=== PATIENT | female | born 2000 | race Caucasian/White ===

== ENCOUNTER 2022-03-30 05:44 | Emergency (ER) | payer OTHER ==
[2022-03-30 06:01] VITALS: BP 135/92; PULSE 110; RESP 16; TEMP 98.1
[2022-03-30] MEDS ORDERED: LORazepam 1 MG TAB PO STA (06:14)
[2022-03-30] MEDS ORDERED: LIDOCAINE/EPINEPHR/TETRACAINE 5 ML BOTTLE TOPICAL ONE ×2 (06:14→07:14)
[2022-03-30] MEDS ORDERED: HYDROcodone/APAP 5-325MG 1 EACH TAB PO STA ×2 (06:14→07:14)
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
[2022-03-30] MEDS ORDERED: LIDOCAINE 1% INJ 10MG/ML (5 ML VIAL-PF) SQ ONE (06:54)
[2022-03-30] MEDS: DIPH,PERTUS(ACELL)TETVAC-LF 0.5 ML VIAL IM ONE ×2 (07:01→07:07)
--- NOTE | 2022-03-30 08:39 | XR ---
EXAMINATION TYPE: XR hand complete RT DATE OF EXAM: 03/30/2022 CLINICAL HISTORY: Pain after laceration injury TECHNIQUE: Frontal, lateral and oblique images of the right hand are obtained. COMPARISON: None. FINDINGS: Evaluation slightly suboptimal due to incomplete extension of the right thumb. There is no acute fracture/dislocation evident in the right hand. The joint spaces in the right hand appear with in normal limits. Mild diffuse soft tissue swelling over the right thumb without radiodense foreign b jamshid. IMPRESSION: As above.
== END 2022-03-30 09:15 | disposition home or self-care (01) ==
LOC: EC 05:44
DX: S61.011A Laceration without foreign body of right thumb without damage to nail, initial encounter (principal); F17.290 Nicotine dependence, other tobacco product, uncomplicated; W25.XXXA Contact with sharp glass, initial encounter
CPT/HCPCS: 73130; 99283; 12002; J2001; 90715

== ENCOUNTER 2022-12-12 15:34 | Emergency (ER) | payer OTHER ==
[2022-12-12] MEDS ORDERED: KETOROLAC 15 MG/ML 1 ML VIAL IM STA (16:26)
[2022-12-12] MEDS ORDERED: ORPHENADRINE 30 MG/ML 2 ML VIAL IM STA (16:26)
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
[2022-12-12 17:53] VITALS: BP 122/78; PULSE 60; RESP 20; TEMP 98.2
== END 2022-12-12 17:52 | disposition home or self-care (01) ==
LOC: EC 15:34
DX: Z04.1 Encounter for examination and observation following transport accident (principal); F17.290 Nicotine dependence, other tobacco product, uncomplicated; V49.50XA Passenger injured in collision with unspecified motor vehicles in traffic accident, initial encounter
CPT/HCPCS: 99284; 96372 ×2; J2360; J1885

== ENCOUNTER 2023-05-25 08:25 | Inpatient (IN) | payer OTHER ==
[2023-05-25] MEDS ORDERED: SODIUM CHLORIDE 0.9% 1,000 ML IV ONE ×2 (08:43→12:53)
[2023-05-25] MEDS ORDERED: SODIUM CHLORIDE 0.9% 500 ML 500 ML IV ONE (08:43)
[2023-05-25] MEDS ORDERED: ONDANSETRON 4 MG/2 ML VIAL IVP STA (08:45)
--- NOTE | 2023-05-25 08:48 | ED ---
General Adult HPI - General Chief complaint: Abdominal Pain Stated complaint: Vomiting Time Seen by Provider: 05/25/23 08:35 Source: patient, RN notes reviewed, old records reviewed Mode of arrival: ambulatory Limitations: no limitations - History of Present Illness Initial comments: This is a 23-year-old female who presents emergency Department stating she's about 4 weeks . Patient states last night after she ate some feeling ill and vomited on. Patient states she also has quite a bit diffuse abdominal pain. Patient states today she can anytime she tried to stand up she would almost passed out. This happened multiple times. Patient denies any fever chills. Patient denies any back pain. Patient denies any dysuria hematuria urinary frequency. Patient denies any chest pain difficulty breathing. - Related Data Home Medications Medication Instructions Recorded Confirmed No Known Home Medications 05/25/23 05/25/23 Allergies Allergy/AdvReac Type Severity Reaction Status Date / Time No Known Allergies Allergy Verified 05/25/23 09:17 Review of Systems ROS Statement: Those systems with pertinent positive or pertinent negative responses have been documented in the HPI. ROS Other: All systems not noted in ROS Statement are negative. Past Medical History Past Medical History: No Reported History History of Any Multi-Drug Resistant Organisms: None Reported Past Surgical History: Breast Surgery Past Psychological History: No Psychological Hx Reported Smoking Status: Vaper Past Alcohol Use History: Occasional Past Drug Use History: None Reported General Exam - General Exam Comments Initial Comments: GENERAL: Patient is well-developed and well-nourished. Patient is nontoxic and well- hydrated and is in moderate distress. ENT: Neck is soft and supple. No significant lymphadenopathy is noted. Oropharynx is clear. Moist mucous membranes. Neck has full range of motion without eliciting any pain. EYES: The sclera were anicteric and conjunctiva were pink and moist. Extraocular movements were intact and pupils were equal round and reactive to light. Eyelids were unremarkable. PULMONARY: Unlabored respirations. Good breath sounds bilaterally. No audible rales rhonchi or wheezing was noted. CARDIOVASCULAR: Patient is tachycardic at 140 beats minute ABDOMEN: Abdomen is diffusely tender and she has rebound tenderness SKIN: Skin is clear with no lesions or rashes and otherwise unremarkable. NEUROLOGIC: Patient is alert and oriented x3. Cranial nerves II through XII are grossly intact. Motor and sensory are also intact. Normal speech, volume and content. Symmetrical smile. MUSCULOSKELETAL: Normal extremities with adequate strength and full range of motion. No lower extremity swelling or edema. No calf tenderness. LYMPHATICS: No significant lymphadenopathy is noted PSYCHIATRIC: Normal psychiatric evaluation. Limitations: no limitations Course Vital Signs 05/25/23 05/25/23 08:31 09:15 Temperature 98.5 F Pulse Rate 144 H 114 H Respiratory 18 18 Rate Blood Pressure 62/53 94/72 O2 Sat by Pulse 98 97 Oximetry Medical Decision Making - Medical Decision Making EKG was interpreted by myself shows a sinus tachycardia at 114 bpm MO interval i s 118 QRS is 70 QT interval 342 QTC 410. Patient's EKG shows no ST segment elevation or depression. Was pt. sent in by a medical professional or institution (, PA, HORSE RACE TIMER, urgent ca re, hospital, or halfway...) When possible be specific @ -[No] Did you speak to anyone other than the patient for history (EMS, parent, family, police, friend...)? What history was obtained from this source @ -[No] Did you review nursing and triage notes (agree or disagree)? Why? @ -[I reviewed and agree with nursing and triage notes] Were old charts reviewed (outside hosp., previous admission, EMS record, old EKG, old radiological studies, urgent care reports/EKG's, halfway records)? Report findings @ -[No old charts were reviewed] Differential Diagnosis (chest pain, altered mental status, abdominal pain women, abdominal pain men, vaginal bleeding, weakness, fever, dyspnea, syncope, headache, dizziness, GI bleed, back pain, seizure, CVA, palpatations, mental health, musculoskeletal)? @ -Differential Abdominal Pain Women: Appendicitis, Cholecystitis, diverticulosis, ischemic bowel, pancreatitis, hepa titis, UTI, gastroenteritis, AAA, incarcerated hernia, bowel obstruction, constipation, inflammatory bowel, hepatitis, peptic ulcer disease, splenic infarction, perforated viscus, vulvitis, ovarian torsion, PID, kidney stone, placenta abruption, this is not meant to be an all-inclusive list EKG interpreted by me (3pts min.). @ -[As above] X-rays interpreted by me (1pt min.). @ -[None done] CT interpreted by me (1pt min.). @ -[None done] U/S interpreted by me (1pt. min.). @ -Ultrasound showed an ectopic in the right ovary and large amount of blood in the pelvis abdomen What testing was considered but not performed or refused? (CT, X-rays, U/S, labs)? Why? @ -[None] What meds were considered but not given or refused? Why? @ -[None] Did you discuss the management of the patient with other professionals (professionals i.e. Dr., PA, HORSE RACE TIMER, lab, RT, psych nurse, social insurance adviser, newsstand vendor, teacher, seal delivery vehicle officer, caseworker intake)? Give summary @ -I spoke with Dr. Mendez and he came in to see the patient Was smoking cessation discussed for >3mins.? @ -[No] Was critical care preformed (if so, how long)? @ -Minutes Were there social determinants of health that impacted care today? How? (Homelessness, low income, unemployed, alcoholism, drug addiction, transportation, low edu. Level, literacy, decrease access to med. care, long-term, rehab)? @ -[No] Was there de-escalation of care discussed even if they declined (Discuss DNR or withdrawal of care, Hospice)? DNR status @ -[No] What co-morbidities impacted this encounter? (DM, HTN, Smoking, COPD, CAD, C ancer, CVA, ARF, Chemo, Hep., AIDS, mental health diagnosis, sleep apnea, morbid obesity)? @ -[None] Was patient admitted / discharged? Hospital course, mention meds given and route, prescriptions, significant lab abnormalities, going to OR and other pertinent info. @ -On initial examination of the patient I felt the patient had an acute ab domen I admitted the ordered a type and screen for blood and called Dr. Mendez and Dr. Mendez stated he would be in within 10 minutes. I ordered an ultrasound which eventually showed no ectopic with quite a bit of blood in the abdomen. Dr. Mendez arranged for the patient to go to the OR to have surgery Undiagnosed new problem with uncertain prognosis? @ -[No] Drug Therapy requiring intensive monitoring for toxicity (Heparin, Nitro, Insulin, Cardizem)? @ -[No] Were any procedures done? @ -[No] Diagnosis/symptom? @ -Ectopic Acute, or Chronic, or Acute on Chronic? @ -Acute Uncomplicated (without systemic symptoms) or Complicated (systemic symptoms)? @ -Complicated Side effects of treatment? @ -[No] Exacerbation, Progression, or Severe Exacerbation? @ -[No] Poses a threat to life or bodily function? How? (Chest pain, [place], [place], pneumonia, PE, COPD, DKA, ARF, appy, cholecystitis, CVA, Diverticulitis, Homicidal, Suicidal, threat to staff... and all critical care pts) @ -Yes patient could continue bleeding become hypotensive and - Lab Data Result diagrams: 05/25/23 09:05 05/25/23 09:05 Lab Results 05/25/23 05/25/23 05/25/23 Range/Units 09:05 09:05 09:15 WBC 18.4 H (3.8-10.6) k/uL RBC 3.43 L (3.80-5.40) m/uL Hgb 10.4 L (11.4-16.0) gm/dL Hct 30.8 L (34.0-46.0) % MCV 89.7 (80.0-100.0) fL MCH 30.2 (25.0-35.0) pg MCHC 33.7 (31.0-37.0) g/dL RDW 12.6 (11.5-15.5) % Plt Count 388 (150-450) k/uL MPV 8.1 Neutrophils % 93 % Lymphocytes % 4 % Monocytes % 2 % Eosinophils % 0 % Basophils % 0 % Neutrophils # 17.1 H (1.3-7.7) k/uL Lymphocytes # 0.8 L (1.0-4.8) k/uL Monocytes # 0.4 (0-1.0) k/uL Eosinophils # 0.1 (0-0.7) k/uL Basophils # 0.0 (0-0.2) k/uL Sodium 135 L (137-145) mmol/L Potassium 5.0 (3.5-5.1) mmol/L Chloride 99 (98-107) mmol/L Carbon Dioxide 15 L (22-30) mmol/L Anion Gap 21 mmol/L BUN 16 (7-17) mg/dL Creatinine 1.42 H (0.52-1.04) mg/dL Est GFR (CKD-EPI)AfAm 60 (>60 ml/min/1.73 sqM) Est GFR (CKD-EPI)NonAf 52 (>60 ml/min/1.73 sqM) Glucose 251 H (74-99) mg/dL Calcium 8.8 (8.4-10.2) mg/dL Total Bilirubin 1.2 (0.2-1.3) mg/dL AST 34 (14-36) U/L ALT 38 H (4-34) U/L Alkaline Phosphatase 37 L (38-126) U/L Total Protein 7.0 (6.3-8.2) g/dL Albumin 4.3 (3.5-5.0) g/dL HCG, Quant 4429.1 mIU/mL Blood Type Recheck No Previous Record Bld Type Recheck Status CABO Indicated Spec Expiration Date 05/28/20234 Critical Care Time Critical Care Time: Yes Total Critical Care Time: 35 Disposition Clinical Impression: Ruptured ectopic Disposition: ADMITTED IP TO THIS [facility] Referrals: None,Stated [Primary Care Provider] - 1-2 days Time of Disposition: 09:57
[2023-05-25 09:14] LABS: Basophils % (A) 0 %; Eosinophils # (A) 0.1 k/uL (0-0.7); Eosinophils % (A) 0 %; HCT 30.8 % (34.0-46.0); HGB 10.4 gm/dL (11.4-16.0); Lymphocytes # (A) 0.8 k/uL (1.0-4.8); Lymphocytes % (A) 4 %; MCH 30.2 pg (25.0-35.0); MCHC 33.7 g/dL (31.0-37.0); MCV 89.7 fL (80.0-100.0); Mean Platelet Volume 8.1; Monocytes # (A) 0.4 k/uL (0-1.0); Monocytes % (A) 2 %; Neutrophils # (A) 17.1 k/uL (1.3-7.7); Neutrophils % (A) 93 %; Platelet Count 388 k/uL (150-450); RBC 3.43 m/uL (3.80-5.40); RDW 12.6 % (11.5-15.5); WBC 18.4 k/uL (3.8-10.6)
[2023-05-25 09:22] LABS: African American GFR (CKD) 60 (>60 ml/min/1.73 sqM); Albumin 4.3 g/dL (3.5-5.0); Alkaline Phosphatase 37 U/L (38-126); Anion Gap 21 mmol/L; Blood Urea Nitrogen 16 mg/dL (7-17); Calcium 8.8 mg/dL (8.4-10.2); Carbon Dioxide 15 mmol/L (22-30); Chloride 99 mmol/L (98-107); Glucose 251 mg/dL (74-99); Non-African American GFR(CKD) 52 (>60 ml/min/1.73 sqM); Sodium 135 mmol/L (137-145); Total Bilirubin 1.2 mg/dL (0.2-1.3)
[2023-05-25] MEDS ORDERED: HYDROmorphone 0.5 MG/0.5 ML SYRINGE IVP STA (09:27)
[2023-05-25 09:33] LABS: ALT 38 U/L (4-34); AST 34 U/L (14-36)
[2023-05-25 09:39] LABS: HCG,Quantitative Serum 4429.1 mIU/mL
--- NOTE | 2023-05-25 09:44 | P.HPOB ---
History of Present Illness H&P Date: 05/25/23 Chief Complaint: Abdominal pain and This patient is a 23-year-old 2 para 0 female estimated menstrual. Approximately 2 months ago states that she began having severe abdominal pain that radiated to her upper abdomen last evening is gone worse throughout the night. She reports a positive home test has not seen anybody for the . Upon arrival to the emergency department patient's tachycardic to 140 and hypotensive. Patient has an obvious acute abdomen and bedside ultrasound shows large amount of fluid consistent with hemoperitoneum. Suspicious for an ectopic on the right side. Beta-hCG is pending at time of this dictation. Review of Systems Constitutional: Reports as per HPI Genitourinary: Reports Menstruation: Reports amenorrhea Past Medical History Past Medical History: No Reported History History of Any Multi-Drug Resistant Organisms: None Reported Past Surgical History: Breast Surgery Past Psychological History: No Psychological Hx Reported Smoking Status: Vaper Past Alcohol Use History: Occasional Past Drug Use History: None Reported Medications and Allergies Home Medications Medication Instructions Recorded Confirmed Type No Known Home Medications 05/25/23 05/25/23 History Allergies Allergy/AdvReac Type Severity Reaction Status Date / Time No Known Allergies Allergy Verified 05/25/23 09:17 Exam Vital Signs Temp Pulse Resp BP Pulse Ox 05/25/23 09:15 114 H 18 94/72 97 05/25/23 08:31 98.5 F 144 H 18 62/53 98 Intake and Output 05/24/23 05/25/23 05/25/23 22:59 06:59 14:59 Other: Weight 56.699 kg - OBG Physical Exam Abdomen: Patient has diffuse tenderness throughout her abdomen with rebound and guarding Results Result Diagrams: 05/25/23 09:05 05/25/23 09:05 Abnormal Lab Results - Last 24 Hours (Table) 05/25/23 05/25/23 Range/Units 09:05 09:05 WBC 18.4 H (3.8-10.6) k/uL RBC 3.43 L (3.80-5.40) m/uL Hgb 10.4 L (11.4-16.0) gm/dL Hct 30.8 L (34.0-46.0) % Neutrophils # 17.1 H (1.3-7.7) k/uL Lymphocytes # 0.8 L (1.0-4.8) k/uL Sodium 135 L (137-145) mmol/L Carbon Dioxide 15 L (22-30) mmol/L Creatinine 1.42 H (0.52-1.04) mg/dL Glucose 251 H (74-99) mg/dL ALT 38 H (4-34) U/L Alkaline Phosphatase 37 L (38-126) U/L Assessment and Plan Assessment: This is a 23-year-old 2 para 0 female with severe abdominal pain, , and clinical findings consistent with ruptured ectopic and large hemoperitoneum. On initial presentation patient's quite tachycardic and hypotensive she's been fluid resuscitated by the emergency department. I recommended that she proceed immediately to the operating room for exploratory laparotomy, excision of ectopic , and possible right or left salpingimgostomy/salpingectomy. I did have a discussion with the patient and he r partner about the surgery and risks. She understands the risk of infection, bleeding, possible loss of her fallopian tube on the left or right side. I also discussed possible blood transfusion with her due to the amount of the blood that appears to be in her abdomen. All the patient's questions are answered and a written consent is obtained. (1) Abdominal pain affecting Status: Acute Code(s): O26.899 - OTH RELATED CONDITIONS, UNSPECIFIED TRIMESTER; R10.9 - UNSPECIFIED ABDOMINAL PAIN SNOMED Code(s): 675632670 (2) Ectopic Status: Acute Code(s): O00.90 - UNSPECIFIED ECTOPIC WITHOUT INTRAU TERINE SNOMED Code(s): 77430685 (3) Hemoperitoneum Status: Acute Code(s): K66.1 - HEMOPERITONEUM SNOMED Code(s): 651783073
--- NOTE | 2023-05-25 09:47 | US ---
EXAMINATION TYPE: Transabdominal DATE OF EXAM: 05/25/2023 9:32 AM COMPARISON: NONE CLINICAL INDICATION: Female, 23 years old with history of Abdominal pain; Patient in extreme pain dur ing exam, unable to have full range of motion during TV due to pain tolerance, newly , patien t unsure of LMP EXAM PERFORMED: OBTA/OBTV EXAM MEASUREMENTS: GESTATIONAL AGE / DATING Physician Established: Not yet established Dates by LMP: LMP unknown Dates by First Scan: No previous this is first scan Dates by Current Scan for: No IUP seen at this time MATERNAL ANATOMY Uterus: 4.4 x 5.9 x 4.6cm Right Ovary: 3.3 x 2.1cm - possible gestational sac seen adjacent with echogenic area within, if this area is nonviable fetus, it measures 6w5d Left Ovary: not seen Post CDS / Adnexa:free fluid with debris represents fresh bleed Presence of free fluid: debris filled fluid thorughout pelvis Presence of corpus luteal cyst: not seen Presence of subchorionic bleed: no GESTATION / SURVEY CRL: 0.7cm (6 weeks/5 days) - possible ruptured ectopic within right adnexa adjacent or communicates with right ovary IUP: No cardiac activity noted on today's scan. Date of LMP: unknown Beta HcG (if available): pending No intrauterine gestational sac identified. IMPRESSION: Findings most consistent with ruptured ectopic with moderate amount of complex fluid, likel y blood products within the right adnexa and suspected gestational sac and pole in the right ad nexa. Findings called to and discussed with Dr. Mando Huang at 9:43 AM on 05/25/2023. Reported patient h eading 2 OR.
[2023-05-25] MEDS ORDERED: DEXAMETHASONE SOD PHOSPHATE 4 MG/ML 1 ML VIAL IVP ONE (10:18)
[2023-05-25] MEDS ORDERED: ETOMIDATE 2 MG/ML 10 ML VIAL ONE (10:19)
[2023-05-25] MEDS ORDERED: ROCURONIUM 10 MG/ML (5 ML VIAL) IV ONE (10:19)
[2023-05-25] MEDS ORDERED: SODIUM CHLORIDE 0.9% 100 ML BAG ONE (10:19)
[2023-05-25] MEDS ORDERED: fentaNYL (PF) 50 MCG/ML 2 ML AMP ONE (10:19)
[2023-05-25] MEDS ORDERED: LIDOCAINE 2% INJ 20 MG/ML (2 ML VIAL) ONE (10:19)
[2023-05-25] MEDS ORDERED: GLYCOPYRROLATE 0.2 MG/ML 2 ML VIAL ONE (10:19)
[2023-05-25] MEDS ORDERED: LIDOCAINE 4% LTA KIT (4 ML) TOPICAL ONE (10:19)
[2023-05-25] MEDS ORDERED: NEOSTIGMINE 1 MG/ML 10 ML VIAL ONE (10:19)
[2023-05-25] MEDS ORDERED: ceFAZolin 1,000 MG VIAL ONE (10:19)
[2023-05-25] MEDS ORDERED: ALBUMIN HUMAN 25% (12.5gm) 50 ML VIAL ONE (10:19)
[2023-05-25] MEDS ORDERED: SUCCINYLCHOLINE CHLORIDE 200 MG/10 ML VIAL IV ONE (10:19)
[2023-05-25] MEDS ORDERED: MIDAZOLAM 2 MG/2 ML VIAL ONE (10:19)
[2023-05-25] MEDS ORDERED: HYDROmorphone (PF) 1 MG/ML ONE (10:19)
[2023-05-25] MEDS ORDERED: ALBUMIN HUMAN 5% (12.5gm) 250 ML BOTTLE IVPB ONE (10:19)
[2023-05-25] MEDS ORDERED: SODIUM CHLORIDE 0.9% 100 ML with ceFAZolin 2,000 MG IV ONE ×2 (10:24)
[2023-05-25] MEDS ORDERED: IV FLUID CONTINUATION 1,000 ML IV ONE (10:24)
[2023-05-25] MEDS ORDERED: LACTATED RINGERS 1,000 ML IV ONE (11:16)
--- NOTE | 2023-05-25 11:52 | P.OP ---
Date of Procedure: 05/25/23 Preoperative Diagnosis: #1: Acute abdomen. #2: Ruptured ectopic . #3: Hemoperitoneum Postoperative Diagnosis: Same Procedure(s) Performed: Exploratory laparotomy with right salpingectomy with excision of ectopic and evacuation of hemoperitoneum Anesthesia: EFRAINA Surgeon: Hira Willett Hybrid Corn Breeder #1: Dotty Baeza Estimated Blood Loss (ml): 25 IV fluids (ml): 1,300 Urine output (ml): 350 Pathology: other (Right fallopian tube with ruptured ectopic ) Condition: stable Disposition: PACU Indications for Procedure: Please see dictated H&P for intimate details of this patient's admission. Brief summary this is a pleasant 23-year-old 2 para 0 female estimated menstrual. Approximately 2 months ago presents to the emergency department with onset of abdominal pelvic pain and an acute abdomen. Evaluation emergency department is consistent with a ruptured ectopic and large hemoperitoneum. Patient was fluid resuscitated is best as possible emergency department and I recommended proceed immediately to the operating room for exploratory laparotomy and excision of the ectopic . Patient understands this surgery and risks and risks of infection, bleeding, possible injury bowel, bladder, vessels, and other organs. All the patient's questions are answered and written consent obtained. Operative Findings: This patient had approximately 1500 mL of hemoperitoneum. There was an ruptured ectopic approximately 1-1/2 cm from the right corneal area of the fallopian tube. The left fallopian tube appeared normal. Ovaries appeared normal. Uterus appeared normal. Upper abdomen besides a hemoperitoneum appeared grossly normal Description of Procedure: This patient is taken to the operating room where she is laid in the supine position. She subsequently undergoes general endotracheal anesthesia without incident. With an adequate level of anesthesia she has a Avila catheter placed to straight drain and abdominal prep and drape. The appropriate timeout is done. Scalpels then taken and a low transverse uterine incision is made. A second scalpel is taken down to the fascia the fascia scored with the scalpel. Fascial incision extended bilaterally using the Gross scissors. Fascia is then dissected off the rectus muscles sharply. Rectus muscles are perit oneum is identified and entered sharply. Immediately there is loss of a large amount of blood consistent with a hemoperitoneum. Suction is placed until a large portion of the hemoperitoneum is reduced. Using Metzenbaum scissors and then extended a peritoneum superior and inferiorly. More blood is removed from the abdomen and pelvis. The [place] retractor is then placed. Bladder blade is placed. After more of the hemoperitoneum is reduced, A3 are wet laparotomy sponges placed to move the bowel up out of the operative field. Using a Muir and then grabbed the cornea of the uterus and there is an obvious ruptured ectopic approximately 1-1/2 cm from the right tube cornual area. It is evident that the best treatment for this patient is to excise the right fallopian tube. Using Mery clamps I clamp across the right fallopian tube and ectopic . This is excised with Metzenbaum scissors. Using 0 Vicryl suture, the tubal ends are suture ligated with Mery stitch and also a free tie. Excellent hemostasis is noted. There is one area bleedings the center of the tube which is identified and then ligated using another interrupted 0 Vicryl suture. Copious irrigation is done at this time. Excellent hemostasis is noted. More of the hemoperitoneum is reduced as best as possible. I do removed the laparotomy sponge inspect the upper abdomen and removed some more large clots. Irrigation is done in the area where the ectopic is again visualized and appears to be hemostatic. With excellent hemostasis assured and the hemoperitoneum reduced as much as possible the procedure is ended. The [place] retractor is removed. The parietal peritoneum was identified with hemostats and closed using 0 Vicryl running fashion. Rectus muscles then closed using 0 Vicryl interrupted fashion. Fascial incision is then closed using 0 Vicryl running fashion Excellent reapproximation is noted. Subcutaneous tissues and closed using a 3-0 Vicryl. Skin is and closed using stella. All counts are correct 3. There are no complications. Patient is awakened from anesthesia and taken to recovery room in satisfactory condition. Of note I am going to give her 1 unit of blood due to the large amount of hemoperitoneum. She and I previously discussed this prior to surgery.
[2023-05-25] MEDS ORDERED: HYDROmorphone 0.5 MG/0.5 ML SYRINGE IVP ONE ×3 (12:05→12:35)
[2023-05-25] MEDS ORDERED: KETOROLAC 15 MG/ML 1 ML VIAL IVP ONE (12:20)
[2023-05-25] MEDS ORDERED: LACTATED RINGERS 1,000 ML IV SCH (13:00)
[2023-05-25] MEDS ORDERED: Acetaminophen-Codeine 300-30mg TAB PO PRN (13:54)
[2023-05-25] MEDS ORDERED: ONDANSETRON 4 MG/2 ML VIAL IVP PRN (13:54)
[2023-05-25] MEDS ORDERED: diphenhydrAMINE 50 MG/ML 1 ML VIAL IVP PRN (13:54)
[2023-05-25] MEDS ORDERED: HYDROmorphone PCA 10 MG/50 ML BAG IV PRN (13:54)
[2023-05-25] MEDS ORDERED: SIMETHICONE 80 MG CHEWABLE PO PRN (13:54)
[2023-05-25] MEDS ORDERED: NALOXONE 0.4 MG/ML 1 ML VIAL IV PRN (13:54)
[2023-05-25] MEDS: LACTATED RINGERS 1,000 ML IV SCH (14:28)
[2023-05-25] MEDS: KETOROLAC 15 MG/ML 1 ML VIAL IVP PRN (18:12)
[2023-05-25 18:34] LABS: Basophils % (A) 0 %; Eosinophils # (A) 0.1 k/uL (0-0.7); Eosinophils % (A) 1 %; HCT 20.1 % (34.0-46.0); Lymphocytes # (A) 0.7 k/uL (1.0-4.8); Lymphocytes % (A) 7 %; MCH 29.7 pg (25.0-35.0); MCHC 33.6 g/dL (31.0-37.0); MCV 88.2 fL (80.0-100.0); Mean Platelet Volume 7.7; Monocytes # (A) 0.7 k/uL (0-1.0); Monocytes % (A) 7 %; Neutrophils # (A) 9.3 k/uL (1.3-7.7); Neutrophils % (A) 85 %; Platelet Count 161 k/uL (150-450); RBC 2.28 m/uL (3.80-5.40); WBC 10.9 k/uL (3.8-10.6)
[2023-05-25 18:41] LABS: HGB 6.8 gm/dL (11.4-16.0)
[2023-05-25] MEDS: SENNOSIDES-DOCUSATE SODIUM 1 EACH TAB PO SCH (22:12)
[2023-05-26] MEDS: KETOROLAC 15 MG/ML 1 ML VIAL IVP PRN ×3 (00:11→16:28)
[2023-05-26] MEDS: LACTATED RINGERS 1,000 ML IV SCH ×2 (00:14→08:44)
[2023-05-26 07:13] LABS: Basophils % (A) 0 %; Eosinophils # (A) 0.3 k/uL (0-0.7); Eosinophils % (A) 2 %; HGB 8.1 gm/dL (11.4-16.0); Lymphocytes # (A) 1.9 k/uL (1.0-4.8); Lymphocytes % (A) 17 %; MCH 29.4 pg (25.0-35.0); MCHC 32.4 g/dL (31.0-37.0); MCV 90.7 fL (80.0-100.0); Mean Platelet Volume 7.9; Monocytes # (A) 0.4 k/uL (0-1.0); Monocytes % (A) 4 %; Neutrophils # (A) 8.8 k/uL (1.3-7.7); Neutrophils % (A) 76 %; Platelet Count 147 k/uL (150-450); RBC 2.76 m/uL (3.80-5.40); RDW 14.3 % (11.5-15.5); WBC 11.5 k/uL (3.8-10.6)
[2023-05-26 07:33] LABS: ALT 12 U/L (4-34); AST 22 U/L (14-36); African American GFR (CKD) >90 (>60 ml/min/1.73 sqM); Albumin 3.3 g/dL (3.5-5.0); Alkaline Phosphatase 34 U/L (38-126); Anion Gap 6 mmol/L; Blood Urea Nitrogen 9 mg/dL (7-17); Carbon Dioxide 22 mmol/L (22-30); Chloride 107 mmol/L (98-107); Glucose 99 mg/dL (74-99); Non-African American GFR(CKD) >90 (>60 ml/min/1.73 sqM); Potassium 3.5 mmol/L (3.5-5.1); Sodium 135 mmol/L (137-145); Total Bilirubin 1.4 mg/dL (0.2-1.3); Total Protein 5.4 g/dL (6.3-8.2)
[2023-05-26] MEDS ORDERED: ACETAMINOPHEN TAB 325 MG TAB PO STA (07:46)
--- NOTE | 2023-05-26 08:00 | P.PN ---
Progress Note - Text Progress Note Date: 05/26/23 Postoperative day #1. Patient's hemoglobin yesterday after one unit of blood was 6.8 therefore I gave her another unit of blood this morning it is appropriately at 8.1. Patient was doing well overnight however this morning her oxygen saturation was dropped into the 80s. This did come up into the 90s with O2 supplementation. Patient denies chest pain other than what she had yesterday prior to surgery. She does not appear to have labored breathing. Her pulse has been running in the 1 teens, however this morning it did increase to the 130s. Patient also spiked a temperature this morning of 101. Repeat metabolic panel shows her creatinine is now normal as well as her liver function tests. Lungs are clear. Patient is tolerating regular diet. Due to the decreased oxygen saturation, I am going to consult medicine this morning to rule out pulmonary embolism or other sources of her decreased saturation. Also start on IV antibiotics for her fever as well as Tylenol.
--- NOTE | 2023-05-26 08:56 | CT ---
EXAMINATION TYPE: CT chest angio for PE CT DLP: 160.5 mGycm, Automated exposure control for dose reduction was used. DATE OF EXAM: 05/26/2023 8:47 AM COMPARISON: None. CLINICAL INDICATION:Female, 23 years old with history of tachy, hypoxia; tachy, hypoxia. iso 370/100m l injected. best images due to pt moving and yelling during bolus from sensitive IV site in hand TECHNIQUE/CONTRAST: CTA scan of the thorax is performed with IV Contrast, patient injected with 100ml mL of Isovue 370, p ulmonary embolism protocol. MIP images are created and reviewed. FINDINGS: Pulmonary Artery: There is no evidence for a filling defect within the pulmonary vasculature to sugge st acute pulmonary embolism. The pulmonary artery is of normal size. Lungs/Pleura: Pneumothorax. Small bilateral pleural effusions. Bilateral lower lobe consolidation wit h patchy groundglass opacities. Additional patchy multifocal airspace opacities within the dependent portions of the bilateral upper lobes. Airway: Large airways are patent. Heart: Heart is within normal limits for size.. Vasculature: No evidence of aortic aneurysm. Mediastinum: No gross evidence of adenopathy. Musculoskeletal: No acute osseous abnormalities Soft Tissues: Bilateral breast prosthesis. Diffuse anasarca. Lower neck: No significant findings. Upper Abdomen: Pneumoperitoneum identified which is likely result of recent postsurgical change in th e setting of previously seen ruptured ectopic . IMPRESSION: 1. No evidence of pulmonary embolism. 2. Small bilateral pleural effusions with bibasilar consolidation and multifocal dependent patchy jovani undglass opacities and diffuse anasarca. Findings are suspicious for volume overload with pulmonary e cammie. Superimposed infectious process is not excluded. 3.Pneumoperitoneum which is likely result of recent postsurgical change.
[2023-05-26] MEDS ORDERED: FUROSEMIDE 10 MG/ML 2 ML VIAL IV ONE (09:25)
[2023-05-26] MEDS: SENNOSIDES-DOCUSATE SODIUM 1 EACH TAB PO SCH ×2 (09:57→20:00)
[2023-05-26] MEDS: Acetaminophen-Codeine 300-30mg TAB PO PRN ×2 (12:06→19:59)
--- NOTE | 2023-05-26 13:16 | P.CONS ---
History of Present Illness - Reason for Consult Consult date: 05/26/23 - History of Present Illness Patient is a 23-year-old female with no significant past medical history pres ented on 05/25 with a ruptured ectopic . On initial presentation, patient was tachycardic to 144 and hypotensive to 62/53. Initial WBC was 18.4, hemoglobin 10.4, creatinine 1.42. She was taken directly to the operating room, where she was found to have pneumoperitoneum which was evacuated. Her next hemoglobin was found to be 6.8, she was given 2 units of blood. She was also given 2 L of IV fluids in the ED, and possibly more IV fluids during her operation. This morning, patient was noted to have dyspnea on resting. She was found to be hypoxic in the 80s. She was started on supplemental oxygen. She remains tachycardic in the 110s. Blood pressure now stable and systolics of 100 . Most recent WBC count was 11.5, hemoglobin 8.1, creatinine improved to 0.59. [facility] has been consulted for new onset acute hypoxic respiratory failure. Patient claims that she has occasional chest heaviness with deep breaths. She denies any palpitations, lightheadedness, nausea, vomiting, or urinary complaints. She does have incisional abdominal pain, and has not had a bowel movement since her surgery. CTA was obtained due to concerns for PE, however small bilateral pleural effusions suspicious for pulmonary edema noted. Pertinent positives and negatives as discussed in HPI, a complete review of systems was performed and all other systems are negative. Patient seen and examined at bedside. Vital signs reviewed General: nontoxic, no distress, appears at stated age Derm: warm, dry, abdominal dressing/binder clean, dry, intact Head: atraumatic, normocephalic, symmetric Eyes: EOMI, no lid lag, anicteric sclera, pupils equal round reactive to light ENT: Nose and ears atraumatic Neck: No thyromegaly, supple Mouth: no lip lesion, mucus membranes moist Cardiovascular: S1S2 reg, no murmur, no edema Lungs: Bilateral rales at the bases, no wheeze, no accessory muscle use, supplemental oxygen Abdominal: soft, nontender to palpation, no guarding, no appreciable organo megaly Ext: no gross muscle atrophy, muscle strength muscle strength 5 out of 5 in all 4 extremities, no contractures Neuro: CN II-XII grossly intact Psych: Alert, oriented, appropriate affect Assessment/Plan: Acute pulmonary edema Acute hypoxic respiratory failure NSTEMI, likely type II Sinus tachycardia Acute blood loss anemia, status post 2 units of PRBCs Hemorrhagic shock, resolved Ruptured ectopic complicated by hemoperitoneum status post evacuation -Acute pulmonary edema likely in the setting of giving blood products as well as IV fluids -ProBNP and troponin elevated -EKG independently interpreted, shows nonspecific ST-T wave changes in the anterior leads -No active chest pain -Cardiology consulted, patient moved to 3 S. on telemetry -Repeat troponin in 8 hours -Continue to wean oxygen -20 of IV Lasix given, strict I's and O's -Echocardiogram pending -Repeat CBC pending -Cultures ordered -Blood pressure is now stable Thank you for allowing us to participate in the care of this pleasant patient. Do not hesitate to contact us with questions. Someone can be reached from the [facility] hospitalist group all hours of the day at [phone] or via [employer]. Past Medical History Past Medical History: No Reported History History of Any Multi-Drug Resistant Organisms: None Reported Past Surgical History: Breast Surgery Past Anesthesia/Blood Transfusion Reactions: No Reported Reaction Past Psychological History: No Psychological Hx Reported Smoking Status: Vaper Past Alcohol Use History: Occasional Past Drug Use History: None Reported - Past Family History Father Family Medical History: No Reported History Medications and Allergies Home Medications Medication Instructions Recorded Confirmed Type No Known Home Medications 05/25/23 05/25/23 History Allergies Allergy/AdvReac Type Severity Reaction Status Date / Time No Known Allergies Allergy Verified 05/25/23 13:56 Physical Exam Vitals: Vital Signs Temp Pulse Pulse Resp BP BP Pulse Ox 05/26/23 11:50 115 H 16 05/26/23 09:57 99.3 F 110 H 16 97 05/26/23 08:52 100.1 F H 125 H 18 96 05/26/23 08:01 133 H 20 90/50 95 05/26/23 07:45 101.3 F H 132 H 18 96 05/26/23 07:06 130 H 16 98/53 96 05/26/23 06:58 100.1 F H 130 H 16 98/53 82 L 05/26/23 04:00 98.4 F 116 H 16 93/53 96 05/25/23 23:20 98.1 F 114 H 16 91/54 96 05/25/23 20:38 98.3 F 107 H 16 94/51 99 05/25/23 19:44 98.6 F 114 H 16 92/60 99 05/25/23 19:24 98.3 F 119 H 16 95/64 99 05/25/23 19:14 98.5 F 119 H 16 106/68 99 05/25/23 15:20 98.5 F 105 H 18 97/59 100 05/25/23 14:50 108 H 18 103/59 100 05/25/23 14:20 93 18 101/67 100 05/25/23 14:05 87 18 104/68 100 05/25/23 13:54 100 05/25/23 13:50 102 H 18 108/69 98 05/25/23 13:35 98.4 F 18 106/71 97 Intake and Output 05/25/23 05/26/23 05/26/23 22:59 06:59 14:59 Intake Total 1160 Output Total 730 952 7069 Balance 660 -500 -1500 Intake: Oral 540 Blood Product 620 Rc As-1 Unit 310 [id number] Output: Urine [id number] Uretheral (Avila) 500 Other: Voiding Method Indwelling Catheter Toilet Results CBC & Chem 7: 05/26/23 06:53 05/26/23 06:53 Labs: Abnormal Lab Results - Last 24 Hours (Table) 05/25/23 05/25/23 05/26/23 Range/Units 09:15 18:05 06:53 WBC 10.9 H 11.5 H (3.8-10.6) k/uL RBC 2.28 L 2.76 L (3.80-5.40) m/uL Hgb 6.8 L* D 8.1 L (11.4-16.0) gm/dL Hct 20.1 L 25.0 L (34.0-46.0) % Plt Count 147 L (150-450) k/uL Neutrophils # 9.3 H 8.8 H (1.3-7.7) k/uL Lymphocytes # 0.7 L (1.0-4.8) k/uL Sodium (137-145) mmol/L Calcium (8.4-10.2) mg/dL Total Bilirubin (0.2-1.3) mg/dL Alkaline Phosphatase (38-126) U/L Troponin I (0.000-0.034) ng/mL Total Protein (6.3-8.2) g/dL Albumin (3.5-5.0) g/dL Crossmatch See Detail 05/26/23 05/26/23 Range/Units 06:53 08:40 WBC (3.8-10.6) k/uL RBC (3.80-5.40) m/uL Hgb (11.4-16.0) gm/dL Hct (34.0-46.0) % Plt Count (150-450) k/uL Neutrophils # (1.3-7.7) k/uL Lymphocytes # (1.0-4.8) k/uL Sodium 135 L (137-145) mmol/L Calcium 8.0 L (8.4-10.2) mg/dL Total Bilirubin 1.4 H (0.2-1.3) mg/dL Alkaline Phosphatase 34 L (38-126) U/L Troponin I 0.215 H* (0.000-0.034) ng/mL Total Protein 5.4 L (6.3-8.2) g/dL Albumin 3.3 L (3.5-5.0) g/dL Crossmatch
[2023-05-26] MEDS ORDERED: ALPRAZolam 0.5 MG TAB PO STA (13:30)
[2023-05-26 14:52] LABS: Basophils % (A) 0 %; Eosinophils # (A) 0.1 k/uL (0-0.7); Eosinophils % (A) 1 %; HCT 21.8 % (34.0-46.0); HGB 7.6 gm/dL (11.4-16.0); Lymphocytes # (A) 1.6 k/uL (1.0-4.8); Lymphocytes % (A) 17 %; MCH 30.7 pg (25.0-35.0); MCHC 34.9 g/dL (31.0-37.0); MCV 88.1 fL (80.0-100.0); Mean Platelet Volume 7.9; Monocytes # (A) 0.6 k/uL (0-1.0); Monocytes % (A) 6 %; Neutrophils # (A) 6.9 k/uL (1.3-7.7); Neutrophils % (A) 75 %; Platelet Count 134 k/uL (150-450); RBC 2.47 m/uL (3.80-5.40); WBC 9.2 k/uL (3.8-10.6)
--- NOTE | 2023-05-26 16:16 | P.CRDCN ---
History of Present Illness Consult date: 05/26/23 Chief complaint: Abdominal discomfort History of present illness: The patient is a 23-year-old female patient with no significant medical history from before who presented to the emergency department yesterday complaining of abdominal discomfort. She underwent an ultrasound and she was diagnosed with ruptured ectopic . She has been experiencing discomfort for the last few days associated with nausea and "feeling ill". Subsequently the patient was taken emergently to the OR and she underwent exploratory laparotomy and evacuation of about 1.5 L of blood from the precordium. During the surgery the patient was hypotensive and tachycardic. She received about 1.5 L of fluid as well. Because she was anemic afterward she received 2 units of packed RBC. We consulted to see the patient because of "heart failure". Earlier this morning she was not feeling well. She was experiencing shortness of breath was no chest pain or chest discomfort. She was hypoxic requiring 4 L of oxygen to maintain normal saturation. Further workup was performed including an EKG and that showed sinus tachycardia and NT proBNP and that came in to be about 3500. Because there was a concern about pulmonary embolism she underwent CTA of the chest and that showed no pulmonary embolism. The patient was given Lasix at 20 mg once and she diuresed extremely well and she felt better. Subsequently she was transferred to the third floor/cardiac monitoring. The patient has no prior medical history. Hemodynamically she continues to be slightly tachycardic with margin a low blood pressure with a systolic pressure around 90 mmHg. Also the patient's troponin was checked and came in to be mildly abnormal. The physical examination is remarkable for soft vital signs as described above with diminished breathing sounds bilaterally and mild bilateral expiratory wheezing as well as regular rate and rhythm with no lower extremity is edema noted Assessment Pulmonary edema/volume overload likely to be iatrogenic related to the volume given including the blood and the IV fluid Status post abdominal surgery for ruptured ectopic Blood loss anemia with a evacuation of 1.5 L from the peritoneum Marginally low blood pressure and mild sinus tachycardia secondary to the above Mildly abnormal troponin secondary to hypertension and tachycardia Plan An echocardiogram is in process to be done Start the patient on a small dose of Lasix at 20 mg IV daily giving that her pressure has been soft and marginal Monitor the hemoglobin very closely and consider blood transfusion for any hemoglobin below 8 Consider medical treatment for the mildly abnormal troponin. Further risk stratification by obtaining an echocardiogram Follow-up with the patient Past Medical History Past Medical History: No Reported History History of Any Multi-Drug Resistant Organisms: None Reported Past Surgical History: Breast Surgery Past Anesthesia/Blood Transfusion Reactions: No Reported Reaction Past Psychological History: No Psychological Hx Reported Smoking Status: Vaper Past Alcohol Use History: Occasional Past Drug Use History: None Reported - Past Family History Father Family Medical History: No Reported History Medications and Allergies Home Medications Medication Instructions Recorded Confirmed Type No Known Home Medications 05/25/23 05/25/23 History Allergies Allergy/AdvReac Type Severity Reaction Status Date / Time No Known Allergies Allergy Verified 05/25/23 13:56 Physical Exam Vitals: Vital Signs Temp Pulse Pulse Resp BP BP Pulse Ox 05/26/23 11:50 115 H 16 05/26/23 09:57 99.3 F 110 H 16 97 05/26/23 08:52 100.1 F H 125 H 18 96 05/26/23 08:01 133 H 20 90/50 95 05/26/23 07:45 101.3 F H 132 H 18 96 05/26/23 07:06 130 H 16 98/53 96 05/26/23 06:58 100.1 F H 130 H 16 98/53 82 L 05/26/23 04:00 98.4 F 116 H 16 93/53 96 05/25/23 23:20 98.1 F 114 H 16 91/54 96 05/25/23 20:38 98.3 F 107 H 16 94/51 99 05/25/23 19:44 98.6 F 114 H 16 92/60 99 05/25/23 19:24 98.3 F 119 H 16 95/64 99 05/25/23 19:14 98.5 F 119 H 16 106/68 99 Intake and Output 05/26/23 05/26/23 05/26/23 06:59 14:59 22:59 Output Total 500 1500 Balance -500 -1500 Output: Urine 500 1500 Other: Voiding Method Toilet Results 05/26/23 14:18 05/26/23 06:53 Cardiac Enzymes 05/26/23 05/26/23 Range/Units 06:53 08:40 AST 22 (14-36) U/L Troponin I 0.215 H* (0.000-0.034) ng/mL CBC 05/25/23 05/26/23 05/26/23 Range/Units 18:05 06:53 14:18 WBC 10.9 H 11.5 H 9.2 (3.8-10.6) k/uL RBC 2.28 L 2.76 L 2.47 L (3.80-5.40) m/uL Hgb 6.8 L* D 8.1 L 7.6 L (11.4-16.0) gm/dL Hct 20.1 L 25.0 L 21.8 L (34.0-46.0) % Plt Count 161 D 147 L 134 L (150-450) k/uL Comprehensive Metabolic Panel 05/26/23 Range/Units 06:53 Sodium 135 L (137-145) mmol/L Potassium 3.5 (3.5-5.1) mmol/L Chloride 107 (98-107) mmol/L Carbon Dioxide 22 (22-30) mmol/L BUN 9 (7-17) mg/dL Creatinine 0.59 (0.52-1.04) mg/dL Glucose 99 (74-99) mg/dL Calcium 8.0 L (8.4-10.2) mg/dL AST 22 (14-36) U/L ALT 12 (4-34) U/L Alkaline Phosphatase 34 L (38-126) U/L Total Protein 5.4 L (6.3-8.2) g/dL Albumin 3.3 L (3.5-5.0) g/dL Current Medications Generic Name Dose Route Start Last Admin Trade Name Freq PRN Reason Stop Dose Admin Acetaminophen/Codeine Phosphate 1 each 05/25/23 13:54 Acetaminophen-Codeine 300-30mg Tab PO Q4HR PRN Moderate Pain (Scale 4 to 6) Acetaminophen/Codeine Phosphate 2 each 05/25/23 13:54 05/26/23 12:06 Acetaminophen-Codeine 300-30mg Tab PO 2 each Q6HR PRN Administration Severe Pain (Scale 7 to 10) Diphenhydramine HCl 25 mg 05/25/23 13:54 Diphenhydramine 50 Mg/Ml 1 Ml Vial IVP Q6HR PRN Itching Furosemide 20 mg 05/27/23 09:00 Furosemide 10 Mg/Ml 2 Ml Vial IV DAILY SARAH Cefazolin Sodium 2 gm/ Sodium 50 mls @ 100 mls/hr 05/26/23 08:00 05/26/23 08:45 Chloride IVPB 100 mls/hr Q8HR SARAH Administration Protocol Ibuprofen 600 mg 05/25/23 13:54 Ibuprofen 600 Mg Tab PO Q6HR PRN Mild Discomfort Ketorolac Tromethamine 15 mg 05/25/23 13:54 05/26/23 07:11 Ketorolac 15 Mg/Ml 1 Ml Vial IVP 05/26/23 23:00 15 mg Q6HR PRN Administration Mild Pain (Scale 1 to 3) Naloxone HCl 0.2 mg 05/25/23 13:54 Naloxone 0.4 Mg/Ml 1 Ml Vial IV Q2M PRN Opioid Reversal Ondansetron HCl 4 mg 05/25/23 13:54 Ondansetron 4 Mg/2 Ml Vial IVP Q6HR PRN Nausea And Vomiting Senna/Docusate Sodium 2 each 05/25/23 21:00 05/26/23 09:57 Sennosides-Docusate Sodium 1 Each Tab PO Not Given BID SARAH Simethicone 80 mg 05/25/23 13:54 Simethicone 80 Mg Chewable PO ACHS PRN Bloating Intake and Output 05/26/23 05/26/23 05/26/23 06:59 14:59 22:59 Output Total 500 1500 Balance -500 -1500 Output: Urine 500 1500 Other: Voiding Method Toilet 05/26/23 14:18 05/26/23 06:53
[2023-05-26] MEDS ORDERED: FUROSEMIDE 10 MG/ML 2 ML VIAL IV STA (17:33)
[2023-05-26 18:30] LABS: ABG HCO3 27 mmol/L (21-25); ABG Oxygen Saturation 97.6 % (94-97); ABG PCO2 36 mmHg (35-45); ABG PH 7.49 (7.35-7.45); ABG PO2 80 mmHg (83-108); ABG TCO2 29 mmol/L (19-24); Allen Test Performed? Yes
--- NOTE | 2023-05-26 19:46 | XR ---
EXAMINATION TYPE: XR chest 1V portable DATE OF EXAM: 05/26/2023 6:46 PM COMPARISON: CTA chest 05/26/2023 TECHNIQUE: XR chest 1V portable . CLINICAL INDICATION:Female, 23 years old with history of SOB; FINDINGS: Lungs/Pleura: Bilateral lower lobe airspace opacities with air bronchograms. There is improved aerati on of the upper lobes bilaterally when compared to recent CT examination. No pneumothorax. No sizable pleural effusion. Pulmonary vascularity: Unremarkable. Heart/mediastinum: Cardiomediastinal silhouette is unremarkable. Musculoskeletal: No acute osseous pathology. Other findings: Previously described pneumoperitoneum is less conspicuous on this exam. IMPRESSION: 1. Bibasilar airspace opacities remain concerning for pulmonary edema as described on recent CT exami nation. However, superimposed infection can have a similar appearance and should be determined clinic ally. 2. Previously described pneumoperitoneum is less conspicuous on today's exam.
[2023-05-27] MEDS ORDERED: DEXMEDETOMIDINE/0.9% NACL(PMX) 400 MCG in EMPTY BAG 1 BAG IV SCH (01:30)
--- NOTE | 2023-05-27 03:27 | P.CNPUL ---
History of Present Illness Consult date: 05/27/23 Requesting physician: Kirill Lucas Reason for consult: dyspnea Chief complaint: Stabbing abdominal pain History of present illness: I am seeing this patient in new consultation today 05/27/2023 status post operative day #2 following a right salpingectomy with excision of ectopic and evacuation of hemoperitoneum. Patient is a 23-year-old white female without a significant past medical history. She did have a positive urine test on outpatient basis. She then started developing severe diffuse abdominal pain on Saturday. She states that it was so severe that she was vomiting and had multiple near syncopal events. She did end up coming to the emergency room on May 25. She was profoundly hypotensive and tachycardic. An abdominal ultrasound had findings consistent with ruptured ectopic with moderate amount of complex fluids within the right adnexa. Quantitative hCG was elevated at 4429. Patient was emergently taken to the operating room for exploratory laparotomy with right-sided salpingectomy with excision of the ectopic and evacuation of a hemoperitoneum. A total of 1.5 L was evacuated from the abdomen. She has required a total of 3 PRBC transfusions. She then became short of breath, likely due to fluid overload. A follow-up c hest CTA done yesterday showed no evidence of pulmonary embolism, there were small bilateral pleural effusions with bibasilar consolidation and multifocal dependent patchy ground was opacities and diffuse anasarca. Suspicious for volume overload with pulmonary edema. Superimposed infection could not be ruled out, but is felt to be less likely. There is also a pneumoperitoneum consistent with recent surgery. NT proBNP is elevated at 3440. Patient has been started on Lasix 20 mg IV daily. She states that she has been voiding a lot. She is currently sitting up in bed, on room air, in no acute distress. ABG done yesterday shows a pO2 of 80, he CO2 of 36, pH of 7.49. This was done on 2 L/m nasal cannula. Blood pressure is normotensive. She is slightly tachycardic. Abdomen is soft and nontender. Suprapubic incision is clean, dry, and approximated with stella. She is receiving cefazolin. Most recent CBC from yesterday shows a WBC count of 9.2, hemoglobin 7.6, hematocrit 21.8, platelets 134. BMP from yesterday shows a sodium 135, potassium 3.5, chloride 107, serum bicarb 22, BUN 9, creatinine 0.59, glucose 99. Lactic acid level 0.8. Troponins are elevated at 0.22, 0.93, and 1.03 respectively. Patient denies any chest pain, heart palpitations, PND, lower extremity swelling, orthopnea. No obvious ECG evidence of ischemia. Appears hemodynamically stable, no need for transfer to the intensive care unit at this time. Review of Systems REVIEW OF SYSTEMS: CONSTITUTIONAL: Denies any recent significant weight loss or weight gain. EYES: Denies change in vision. EARS, NOSE, MOUTH, THROAT: Denies headaches, denies sore throat. CARDIOVASCULAR: Denies chest pain, palpitations or syncopal episodes. RESPIRATORY: Denies cough, congestion or hemoptysis. GASTROINTESTINAL: Denies change in appetite, abdominal pain, nausea, or di arrhea. Admits vomiting prior to admission. Admits incisional abdominal tenderness. GENITOURINARY: Denies hematuria, denies infections. MUSKULOSKELETAL: Denies pain, denies swelling. INTEGUMENTARY: Denies rash, denies eczema. NEUROLOGICAL: Denies recent memory loss, no recent seizure activity. PSYCHIATRIC: Denies anxiety, denies depression. HEMATOLOGIC/LYMPHATIC: Denies anemia, denies enlarged lymph node Past Medical History Past Medical History: No Reported History History of Any Multi-Drug Resistant Organisms: None Reported Past Surgical History: Breast Surgery Past Anesthesia/Blood Transfusion Reactions: No Reported Reaction Past Psychological History: No Psychological Hx Reported Smoking Status: Vaper Past Alcohol Use History: Occasional Past Drug Use History: None Reported - Past Family History Father Family Medical History: No Reported History Medications and Allergies Home Medications Medication Instructions Recorded Confirmed Type No Known Home Medications 05/25/23 05/25/23 History Allergies Allergy/AdvReac Type Severity Reaction Status Date / Time No Known Allergies Allergy Verified 05/25/23 13:56 Physical Exam Vitals: Vital Signs Temp Pulse Pulse Resp BP BP BP 05/26/23 23:16 98.2 F 108 H 17 89/55 05/26/23 20:35 99.8 F H 115 H 18 99/66 05/26/23 20:00 99.0 F 115 H 18 99/66 05/26/23 19:24 98.1 F 112 H 18 107/67 05/26/23 19:08 98.7 F 114 H 16 100/63 05/26/23 18:58 98.9 F 113 H 16 98/65 05/26/23 11:50 115 H 16 05/26/23 09:57 99.3 F 110 H 16 05/26/23 08:52 100.1 F H 125 H 18 05/26/23 08:01 133 H 20 90/50 05/26/23 07:45 101.3 F H 132 H 18 05/26/23 07:06 130 H 16 98/53 05/26/23 06:58 100.1 F H 130 H 16 98/53 05/26/23 04:00 98.4 F 116 H 16 93/53 Pulse Ox 05/26/23 23:16 93 L 05/26/23 20:35 98 05/26/23 20:00 98 05/26/23 19:24 97 05/26/23 19:08 95 05/26/23 18:58 94 L 05/26/23 11:50 05/26/23 09:57 97 05/26/23 08:52 96 05/26/23 08:01 95 05/26/23 07:45 96 05/26/23 07:06 96 05/26/23 06:58 82 L 05/26/23 04:00 96 Intake and Output 05/26/23 05/26/23 05/27/23 14:59 22:59 06:59 Intake Total 240 310 Output Total 1500 800 500 Balance -1260 -490 -500 Intake: Oral 240 Blood Product 310 Rc As-1 Unit 310 [id number] Output: Urine 1500 800 500 Other: Voiding Method Toilet # Voids 1 1 GENERAL EXAM: Alert, 23-year-old white female, comfortable in no apparent distress. HEAD: Normocephalic and atraumatic EYES: Normal reaction of pupils, equal size. NOSE: Clear with pink turbinates. THROAT: No erythema or exudates. NECK: No masses, no JVD. CHEST: No chest wall deformity. LUNGS: Equal air entry with no crackles, wheeze, rhonchi or dullness. On room air. No conversational dyspnea or accessory muscle use.. CVS: S1 and S2 normal with no audible murmur, regular rhythm. No extra heart sounds ABDOMEN: No hepatosplenomegaly, active bowel sounds, no guarding or rigidity. Suprapubic incision is clean, dry, and approximated with stella. SPINE: No scoliosis or deformity SKIN: No rashes CENTRAL NERVOUS SYSTEM: No focal deficits, tone is normal in all 4 extremities. EXTREMITIES: There is no peripheral edema, clubbing, or cyanosis. Peripheral p ulses are intact. Results - Laboratory Findings CBC and BMP: 05/27/23 07:44 05/27/23 09:14 ABG ABG pH 7.49 (7.35-7.45) H 05/26/23 18:25 ABG pCO2 36 mmHg (35-45) 05/26/23 18:25 ABG pO2 80 mmHg (83-108) L 05/26/23 18:25 ABG O2 Saturation 97.6 % (94-97) H 05/26/23 18:25 Abnormal lab findings: Abnormal Labs 05/25/23 05/25/23 05/25/23 09:05 09:05 09:15 WBC 18.4 H RBC 3.43 L Hgb 10.4 L Hct 30.8 L Plt Count Neutrophils # 17.1 H Lymphocytes # 0.8 L ABG pH ABG pO2 ABG HCO3 ABG Total CO2 ABG O2 Saturation Sodium 135 L Carbon Dioxide 15 L Creatinine 1.42 H Glucose 251 H Calcium Total Bilirubin ALT 38 H Alkaline Phosphatase 37 L Troponin I Total Protein Albumin Crossmatch See Detail 05/25/23 05/26/23 05/26/23 18:05 06:53 06:53 WBC 10.9 H 11.5 H RBC 2.28 L 2.76 L Hgb 6.8 L* D 8.1 L Hct 20.1 L 25.0 L Plt Count 147 L Neutrophils # 9.3 H 8.8 H Lymphocytes # 0.7 L ABG pH ABG pO2 ABG HCO3 ABG Total CO2 ABG O2 Saturation Sodium 135 L Carbon Dioxide Creatinine Glucose Calcium 8.0 L Total Bilirubin 1.4 H ALT Alkaline Phosphatase 34 L Troponin I Total Protein 5.4 L Albumin 3.3 L Crossmatch 05/26/23 05/26/23 05/26/23 08:40 14:18 17:42 WBC RBC 2.47 L Hgb 7.6 L Hct 21.8 L Plt Count 134 L Neutrophils # Lymphocytes # ABG pH ABG pO2 ABG HCO3 ABG Total CO2 ABG O2 Saturation Sodium Carbon Dioxide Creatinine Glucose Calcium Total Bilirubin ALT Alkaline Phosphatase Troponin I 0.215 H* 0.932 H* Total Protein Albumin Crossmatch 05/26/23 05/26/23 18:25 22:51 WBC RBC Hgb Hct Plt Count Neutrophils # Lymphocytes # ABG pH 7.49 H ABG pO2 80 L ABG HCO3 27 H ABG Total CO2 29 H ABG O2 Saturation 97.6 H Sodium Carbon Dioxide Creatinine Glucose Calcium Total Bilirubin ALT Alkaline Phosphatase Troponin I 1.030 H* Total Protein Albumin Crossmatch - Diagnostic Findings Chest x-ray: image reviewed CT scan - chest: image reviewed Assessment and Plan Assessment: Post operative day #2 following a right salpingectomy with excision of ectopic and evacuation of hemoperitoneum. Ectopic , abdominal ultrasound had findings consistent with ruptured ectopic with moderate amount of complex fluids within the right adnexa. Quantitative hCG was elevated at 4429. Hypovolemic shock, secondary to above. Requiring a transfusion of 3 units PRBCs Fluid volume overload, secondary to above. A follow-up chest CTA done yesterday showed no evidence of pulmonary embolism, there were small bilateral pleural effusions with bibasilar consolidation and multifocal dependent patchy ground was opacities and diffuse anasarca. Suspicious for volume overload with pulmonary edema. Superimposed infection could not be ruled out, but is felt to be less likely. There is also a pneumoperitoneum consistent with recent surgery. NT proBNP is elevated at 3440. Acute blood loss anemia Elevated troponins, related to supply/demand mismatch. No ECG evidence of ischemia Acute kidney injury, prerenal, improved Plan: Patient's medications, labs, chest x-ray, and other imaging reviewed On room air Continue Lasix Encourage incentive spirometer Pain adequately managed with Tylenol # 3 Recheck hemoglobin in the morning Echocardiogram is pending Appears to have hemodynamically stabilized, no need for transfer to the intensive care unit at this time. We will continue to follow I have personally seen and examined the patient, performed the documentation and the assessment and plan as written. Number of minutes spent on the visit:20 On today's evaluation, the patient is being seen in the joint evaluation along with the nurse practitioner. The patient lost a lot of blood and the hemoglobin dropped down to 6.8 and the patient received a total of 3 units of packed RBC. Currently she is on room air oxygen. Her chest x-ray was consistent with pulmonary edema. Computed tomography scan of the chest was also done in the form of a CT angiogram that showed also no evidence of any pulmonary embolism. There was bilateral pleural effusion and bibasilar consolidation multifocal patchy groundglass pulmonary infiltrates consistent with volume overload versus pulmonary edema. Underlying cardiac myopathies felt to be less likely this could be essentially volume overload due to fluids, blood and . The patient is currently on room air oxygen. No significant shortness of breath. We will order an echocardiogram to evaluate her LV function. Repeat chest x-ray in the morning. She is on Lasix 20 mg IV on a daily basis and this will be continued. Provide the patient incentive spirometer. Pain control with Tylenol No. 3's. Monitor hemoglobin. We'll continue to follow. Time with Patient: Greater than 30
[2023-05-27] MEDS: Acetaminophen-Codeine 300-30mg TAB PO PRN ×4 (04:16→21:30)
--- NOTE | 2023-05-27 05:55 | P.PN ---
Progress Note - Text Progress Note Date: 05/27/23 Post operative day #2. Patient was seen by medicine, cardiology, and pulmonology and has been transferred to telemetry for closer observation. Evaluation has shown most likely some pulmonary edema just from the massive blood loss and fluid resuscitation including 3 units of blood. Patient appears to be diuresing with some Lasix. This morning she is feeling well and her main complaint is just incisional pain. Vital signs are stable. She had a low-grade temperature. Incision is intact and dry. Plan today is to continue supportive care, encourage ambulation, allow the patient to shower, and I am going to start some iron therapy.
[2023-05-27] MEDS: FERROUS SULFATE 325 MG TAB PO SCH ×2 (06:01→16:44)
[2023-05-27 08:23] LABS: Basophils % (A) 0 %; Eosinophils # (A) 0.1 k/uL (0-0.7); Eosinophils % (A) 2 %; HGB 8.6 gm/dL (11.4-16.0); Lymphocytes # (A) 1.9 k/uL (1.0-4.8); Lymphocytes % (A) 25 %; MCH 30.6 pg (25.0-35.0); MCHC 34.3 g/dL (31.0-37.0); MCV 89.3 fL (80.0-100.0); Mean Platelet Volume 8.2; Monocytes # (A) 0.4 k/uL (0-1.0); Monocytes % (A) 6 %; Neutrophils # (A) 5.1 k/uL (1.3-7.7); Neutrophils % (A) 67 %; Platelet Count 139 k/uL (150-450); RDW 14.1 % (11.5-15.5); WBC 7.7 k/uL (3.8-10.6)
[2023-05-27 08:44] LABS: African American GFR (CKD) >90 (>60 ml/min/1.73 sqM); Anion Gap 5 mmol/L; Blood Urea Nitrogen 8 mg/dL (7-17); Calcium 7.5 mg/dL (8.4-10.2); Carbon Dioxide 27 mmol/L (22-30); Chloride 104 mmol/L (98-107); Glucose 96 mg/dL (74-99); Non-African American GFR(CKD) >90 (>60 ml/min/1.73 sqM); Potassium 2.8 mmol/L (3.5-5.1); Sodium 136 mmol/L (137-145)
[2023-05-27] MEDS: SENNOSIDES-DOCUSATE SODIUM 1 EACH TAB PO SCH ×2 (09:07→21:30)
[2023-05-27] MEDS ORDERED: POTASSIUM CHLORIDE ER 20 MEQ TAB.ER PO STA (10:05)
[2023-05-27] MEDS ORDERED: POTASSIUM BICARBONATE/CIT AC 20 MEQ TABLET.EFF PO ONE ×2 (11:00→13:00)
[2023-05-27] MEDS: FUROSEMIDE 10 MG/ML 2 ML VIAL IV SCH (11:45)
--- NOTE | 2023-05-27 12:41 | CA ---
Transthoracic Echo Report Name: Torri Pittman Age: 23 Gender: F : 2000 Exam Date: 05/26/2023 10:55 Exam Location: [facility] Ht (in): 67 Wt (lb): 125 Ordering Physician: Kirill Lucas MD Attending/Referring Phys: [employer] Machine Tool Operator Yadi Sharma [facility] Procedure CPT: Indications: hypoxia, pulmonary edema Cardiac Hx: Technical Quality: Technically difficult study Contrast 1: Total Dose (mL): Contrast 2: Total Dose (mL): MEASUREMENTS (Male / Female) Normal Values 2D ECHO LV Diastolic Diameter PLAX 4.0 cm 4.2 - 5.9 / 3.9 - 5.3 cm LV Systolic Diameter PLAX 2.4 cm IVS Diastolic Thickness 0.8 cm 0.6 - 1.0 / 0.6 - 0.9 cm LVPW Diastolic Thickness 0.9 cm 0.6 - 1.0 / 0.6 - 0.9 cm LV Relative Wall Thickness 0.4 LVOT Diameter 2.0 cm Ascending Aorta Diameter 2.9 cm M-MODE Aortic Root Diameter MM 2.6 cm LA Systolic Diameter MM 3.1 cm LA Ao Ratio MM 1.2 AV Cusp Separation MM 2.1 cm DOPPLER AV Peak Velocity 140.0 cm/s AV Peak Gradient 7.8 mmHg AV Mean Velocity 95.3 cm/s AV Mean Gradient 4.2 mmHg AV Velocity Time Integral 24.4 cm LVOT Peak Velocity 93.0 cm/s LVOT Peak Gradient 3.5 mmHg LVOT Velocity Time Integral 13.2 cm LVOT Stroke Volume 43.1 cm??? LVOT Stroke Volume Index 26.0 ml/m??? LVOT Cardiac Index 2932.6 cm???/min???m??? AV Area Cont Eq vti 1.8 cm??? AV Area Cont Eq pk 2.2 cm??? MR Peak Velocity 406.9 cm/s MR Peak Gradient 66.2 mmHg Mitral E Point Velocity 100.0 cm/s Mitral A Point Velocity 74.5 cm/s Mitral E to A Ratio 1.3 MV Deceleration Time 174.8 ms LV E' Lateral Velocity 14.4 cm/s Mitral E to LV E' Lateral Ratio 7.0 LV E' Septal Velocity 13.5 cm/s Mitral E to LV E' Septal Ratio 7.4 TR Peak Velocity 202.6 cm/s TR Peak Gradient 16.4 mmHg Right Atrial Pressure 8.0 mmHg Pulmonary Artery Systolic Pressu 24.4 mmHg Right Ventricular Systolic Press 24.4 mmHg FINDINGS Left Ventricle Normal left ventricular size, wall thickness, systolic function with no obvious regional wall motion abnormalities. The ejection fraction is visually estimated at 55-60%. Right Ventricle The right ventricle is normal in size and function. Right Atrium The right atrium is normal in size. Left Atrium The left atrium is normal in size. Mitral Valve Mildly thickened mitral valve leaflets. Mild to moderate mitral regurgitation. Aortic Valve Structurally normal aortic valve without significant sclerosis or stenosis. There is no aortic regurgitation. Tricuspid Valve Structurally normal tricuspid valve without significant stenosis. Mild tricuspid regurgitation. Pulmonic Valve Structurally normal pulmonic valve without significant stenosis. There is no pulmonic regurgitation. Pericardium Normal pericardium without effusion. Aorta Normal aortic root dimension. CONCLUSIONS Normal LV systolic function Mildly thickened mitral valve leaflets with [id number] mitral regurgitation Previewed by: Dr. Sai Zarate MD (Electronically Signed) Final Date: 26 May 2023 18:14
--- NOTE | 2023-05-27 13:07 | P.PN ---
Subjective Progress Note Date: 05/27/23 (delayed charting seen at 0900) Patient is a 23-year-old female with no known past medical history who presented on 05/25 with ruptured ectopic . On arrival to the ER she was tachy cardic with a pulse of 144 and was hypotensive with a blood pressure of 62/53. She was taken directly to the operating room where she is on have pneumonic peritoneum which was evacuated with excision of ectopic and right salpingectomy were performed on 05/25/23. She required 3 units of packed red blood cells. She then developed shortness of breath and had increasing O2 requirements. Her BNP was elevated at 3440. She was started on Lasix 20 mg IV push. She was subsequently transferred to the telemetry unit and cardiology and pulmonary were consulted. Her troponin elevated which was felt to be reflective of her hypovolemic shock. CT of the chest was completed which showed no ev idence of pulmonary embolism but did show bilateral pleural effusions with multifocal dependent patchy round glass opacities. Echocardiogram demonstrated an ejection fraction of 35-60% with mild to moderate mitral regurgitation. Patient seen and examined at bedside. She continues to have some abdominal pain. She has right-sided chest pain Vital signs reviewed General: nontoxic, no distress, appears at stated age Cardiovascular: S1S2 reg, no murmur, positive posterior tibial pulse bilateral, Lungs: Rhonchi bilateral bilateral, no rhonchi, no rales , no accessory muscle use Abdominal: soft, + tender to palpation diffusely, no guarding, no appreciable organomegaly Ext: no gross muscle atrophy, no lower extremity edema, no contractures Neuro: CN II-XI grossly intact, no focal neuro deficits Psych: Alert, oriented, appropriate affect Assessment/Plan: Acute pulmonary edema Type II non-STEMI Acute blood loss anemia related to ruptured ectopic and peritoneum Hemorrhagic shock Thrombocytopenia -Continue with IV Lasix 20 meq daily - Repeat CXR in AM - Echocardiogram reviewed: Ejection fraction he 55-60%, no signs of all motion abnormality. - pulm recs appreciated: Lasix -Cardiology consultation review: Continue with Lasix, monitor hemoglobin, await echo. - repeat CBC in AM Hypokalemia -Replace with 80 mEq of potassium oral. - Recheck in a.m. Acute hypoxic respiratory failure, resolved Data Review: Vitals reviewed temperature 99.1, pulse 94, respirations 16, blood pressure 106/51, O2 sat 96% on room air Labs reviewed and hemoglobin 8.6, platelets 139, sodium 136, potassium 3.2, pro calcitonin negative at 0.08 Thank you for allowing us to participate in the care of this pleasant patient. Do not hesitate to contact us with questions. Someone can be reached from the [facility] hospitalist group all hours of the day at [phone] or via perfect serve. This dictation was prepared using [employer] voice recognition software. Though every attempt is made to correct errors during dictation some may still exist. Objective - Vital Signs Vital signs: Vital Signs Temp 99.1 F 05/27/23 09:10 Pulse 94 05/27/23 09:10 Resp 16 05/27/23 09:10 BP 106/51 05/27/23 09:10 Pulse Ox 96 05/27/23 09:10 FiO2 Intake & Output 05/26/23 05/27/23 05/27/23 18:59 06:59 18:59 Intake Total 240 1150 Output Total 1900 1400 Balance -1660 -250 Weight 59 kg Intake: Oral 240 840 Blood Product 0 310 Rc As-1 Unit 0 310 [id number] Output: Urine 1900 1400 Other: Voiding Method Toilet Toilet # Voids 1 - Labs CBC & Chem 7: 05/27/23 07:44 05/27/23 09:14 Labs: Abnormal Lab Results - Last 24 Hours (Table) 05/25/23 05/26/23 05/26/23 Range/Units 09:15 14:18 17:42 RBC 2.47 L (3.80-5.40) m/uL Hgb 7.6 L (11.4-16.0) gm/dL Hct 21.8 L (34.0-46.0) % Plt Count 134 L (150-450) k/uL ABG pH (7.35-7.45) ABG pO2 (83-108) mmHg ABG HCO3 (21-25) mmol/L ABG Total CO2 (19-24) mmol/L ABG O2 Saturation (94-97) % Sodium (137-145) mmol/L Potassium (3.5-5.1) mmol/L Calcium (8.4-10.2) mg/dL Troponin I 0.932 H* (0.000-0.034) ng/mL Crossmatch See Detail 05/26/23 05/26/23 05/27/23 Range/Units 18:25 22:51 07:44 RBC 2.80 L (3.80-5.40) m/uL Hgb 8.6 L (11.4-16.0) gm/dL Hct 25.0 L (34.0-46.0) % Plt Count 139 L (150-450) k/uL ABG pH 7.49 H (7.35-7.45) ABG pO2 80 L (83-108) mmHg ABG HCO3 27 H (21-25) mmol/L ABG Total CO2 29 H (19-24) mmol/L ABG O2 Saturation 97.6 H (94-97) % Sodium (137-145) mmol/L Potassium (3.5-5.1) mmol/L Calcium (8.4-10.2) mg/dL Troponin I 1.030 H* (0.000-0.034) ng/mL Crossmatch 05/27/23 05/27/23 Range/Units 07:44 09:14 RBC (3.80-5.40) m/uL Hgb (11.4-16.0) gm/dL Hct (34.0-46.0) % Plt Count (150-450) k/uL ABG pH (7.35-7.45) ABG pO2 (83-108) mmHg ABG HCO3 (21-25) mmol/L ABG Total CO2 (19-24) mmol/L ABG O2 Saturation (94-97) % Sodium 136 L (137-145) mmol/L Potassium 2.8 L 3.2 L (3.5-5.1) mmol/L Calcium 7.5 L (8.4-10.2) mg/dL Troponin I (0.000-0.034) ng/mL Crossmatch
--- NOTE | 2023-05-27 13:38 | P.PN ---
Subjective Progress Note Date: 05/27/23 HISTORY OF PRESENT ILLNESS: The patient is a 23-year-old female patient with no significant medical history from before who presented to the emergency department yesterday complaining of abdominal discomfort. She underwent an ultrasound and she was diagnosed with ruptured ectopic . She has been experiencing discomfort for the last few days associated with nausea and "feeling ill". Subsequently the patient was taken emergently to the OR and she underwent exploratory laparotomy and evacuation of about 1.5 L of blood from the precordium. During the surgery the patient was hypotensive and tachycardic. She received about 1.5 L of fluid as well. Because she was anemic afterward she received 2 units of packed RBC. We consulted to see the patient because of "heart failure". Earlier this morning she was not feeling well. She was experiencing shortness of breath was no chest pain or chest discomfort. She was hypoxic requiring 4 L of oxygen to maintain normal saturation. Further workup was performed including an EKG and that showed sinus tachycardia and NT proBNP and that came in to be about 3500. Because there was a concern about pulmonary embolism she underwent CTA of the chest and that showed no pulmonary embolism. The patient was given Lasix at 20 mg once and she diuresed extremely well and she felt better. Subsequently she was transferred to the third floor/cardiac monitoring. The patient has no prior medical history. Hemodynamically she continues to be slightly tachycardic with margin a low blood pressure with a systolic pressure around 90 mmHg. Also the patient's troponin was checked and came in to be mildly abnormal. 05/27/2023 Patient examined this morning at the bedside. Patient denies chest pain or pressure. She currently denies shortness of breath. She remains on Lasix 20 mg IV daily. Echocardiogram is pending. PHYSICAL EXAM: VITAL SIGNS: Reviewed. GENERAL: Well-developed in no acute distress. NECK: Supple. No JVD or thyromegaly LUNGS: Respirations even and unlabored. Lungs essentially clear to auscultation bilaterally. HEART: Regular rate and rhythm. S1 and S2 heard. EXTREMITIES: Normal range of motion. No clubbing or cyanosis. Peripheral pulses intact. No lower extremity edema ASSESSMENT: Acute abdomen, ruptured ectopic , hemoperitoneum, status post exploratory laparotomy with right salpingectomy with excision of ectopic preg j luis and evacuation of hemoperitoneum Acute pulmonary edema Acute blood loss anemia Mildly abnormal troponin, no evidence of acute coronary syndrome, suspect secondary to hypotension/tachycardia Hypokalemia PLAN: Continue IV lasix Await results of 2D echo Continue telemetry monitoring. Continue to monitor blood pressure Further recommendations pending patient's course Nurse practitioner note has been reviewed by physician. Signing provider agrees with the documented findings, assessment, and plan of care. Objective - Vital Signs Vital signs: Vital Signs Temp 99.1 F 05/27/23 09:10 Pulse 94 05/27/23 09:10 Resp 16 05/27/23 09:10 BP 106/51 05/27/23 09:10 Pulse Ox 96 05/27/23 09:10 FiO2 Intake & Output 05/26/23 05/27/23 05/27/23 18:59 06:59 18:59 Intake Total 240 1150 Output Total 1900 1400 Balance -1660 -250 Weight 59 kg Intake: Oral 240 840 Blood Product 0 310 Rc As-1 Unit 0 310 [id number] Output: Urine 1900 1400 Other: Voiding Method Toilet Toilet # Voids 1 - Labs CBC & Chem 7: 05/27/23 07:44 05/27/23 09:14 Labs: Abnormal Lab Results - Last 24 Hours (Table) 05/25/23 05/26/23 05/26/23 Range/Units 09:15 14:18 17:42 RBC 2.47 L (3.80-5.40) m/uL Hgb 7.6 L (11.4-16.0) gm/dL Hct 21.8 L (34.0-46.0) % Plt Count 134 L (150-450) k/uL ABG pH (7.35-7.45) ABG pO2 (83-108) mmHg ABG HCO3 (21-25) mmol/L ABG Total CO2 (19-24) mmol/L ABG O2 Saturation (94-97) % Sodium (137-145) mmol/L Potassium (3.5-5.1) mmol/L Calcium (8.4-10.2) mg/dL Troponin I 0.932 H* (0.000-0.034) ng/mL Crossmatch See Detail 05/26/23 05/26/23 05/27/23 Range/Units 18:25 22:51 07:44 RBC 2.80 L (3.80-5.40) m/uL Hgb 8.6 L (11.4-16.0) gm/dL Hct 25.0 L (34.0-46.0) % Plt Count 139 L (150-450) k/uL ABG pH 7.49 H (7.35-7.45) ABG pO2 80 L (83-108) mmHg ABG HCO3 27 H (21-25) mmol/L ABG Total CO2 29 H (19-24) mmol/L ABG O2 Saturation 97.6 H (94-97) % Sodium (137-145) mmol/L Potassium (3.5-5.1) mmol/L Calcium (8.4-10.2) mg/dL Troponin I 1.030 H* (0.000-0.034) ng/mL Crossmatch 05/27/23 05/27/23 Range/Units 07:44 09:14 RBC (3.80-5.40) m/uL Hgb (11.4-16.0) gm/dL Hct (34.0-46.0) % Plt Count (150-450) k/uL ABG pH (7.35-7.45) ABG pO2 (83-108) mmHg ABG HCO3 (21-25) mmol/L ABG Total CO2 (19-24) mmol/L ABG O2 Saturation (94-97) % Sodium 136 L (137-145) mmol/L Potassium 2.8 L 3.2 L (3.5-5.1) mmol/L Calcium 7.5 L (8.4-10.2) mg/dL Troponin I (0.000-0.034) ng/mL Crossmatch
[2023-05-27] MEDS: IBUPROFEN 600 MG TAB PO PRN (20:20)
[2023-05-28] MEDS: IBUPROFEN 600 MG TAB PO PRN (04:52)
--- NOTE | 2023-05-28 06:46 | P.PN ---
Progress Note - Text Progress Note Date: 05/28/23 Postoperative day #3. Patient is resting overnight without complaints. Vital signs are stable she's afebrile. She is no longer tachycardic and blood pressures appear normal. Incision is intact and dry and I did remove her stella today. She's had no fevers over 24 hours and therefore discontinue her antibiotics. CBC is pending at time of this dictation. From a surgical standpoint she is certainly stable for discharge home. Most likely will continue inpatient observation today and discharge home tomorrow. I did encourage her to ambulate as much as possible. Her pulmonary edema/fluid overload appears to be resolving. Appreciate medicines input.
[2023-05-28] MEDS: FERROUS SULFATE 325 MG TAB PO SCH (07:00)
--- NOTE | 2023-05-28 07:53 | XR ---
EXAMINATION TYPE: XR chest 1V portable DATE OF EXAM: 05/28/2023 COMPARISON: 05/26/2023 HISTORY: Shortness of breath TECHNIQUE: Single frontal view of the chest is obtained. FINDINGS: There is no focal air space opacity, pleural effusion, or pneumothorax seen. The osseo us structures are intact. Nodule left lung base measures 7 mm. Tiny amount of free intraperitoneal ai r not excluded as reported by recent CT chest. Heart is enlarged. Emphysematous changes noted. IMPRESSION: 1. COPD with left basilar atelectasis favored over pneumonia. Probable granuloma left lung base. 2. Residual tiny amount of free intraperitoneal air suspected.
[2023-05-28] MEDS: FUROSEMIDE 10 MG/ML 2 ML VIAL IV SCH (09:06)
[2023-05-28] MEDS: SENNOSIDES-DOCUSATE SODIUM 1 EACH TAB PO SCH (09:06)
[2023-05-28 10:06] LABS: HCT 28.7 % (34.0-46.0); HGB 9.2 gm/dL (11.4-16.0); MCH 28.9 pg (25.0-35.0); MCHC 32.1 g/dL (31.0-37.0); Platelet Count 171 k/uL (150-450); RBC 3.19 m/uL (3.80-5.40); RDW 13.9 % (11.5-15.5); WBC 7.1 k/uL (3.8-10.6)
--- NOTE | 2023-05-28 10:20 | P.PN ---
Subjective Progress Note Date: 05/28/23 On today's evaluation of 05/28/2023, the patient is very comfortable, and she has no specific complaints. She has recovered nicely since yesterday. Her breathing is back to normal. Hemoglobin is up to 9.2. Rest of the blood work is showing a potassium of 3.2 that was replaced yesterday. Otherwise, the patient is doing well. Her chest x-ray also shows clearing of the previous discussed pulmonary infiltrates and there is no airspace disease or consolidations. The patient is currently on room air oxygen. The surgical scar over the lower abdomen is dry clean and intact. She has no issues with pain. She is ambulating. She was started also on oral iron twice a day. Objective - Vital Signs Vital signs: Vital Signs Temp 97.7 F 05/28/23 08:00 Pulse 77 05/28/23 08:00 Resp 15 05/28/23 08:00 BP 109/75 05/28/23 08:00 Pulse Ox 97 05/28/23 08:00 FiO2 Intake & Output 05/27/23 05/28/23 05/28/23 18:59 06:59 18:59 Output Total 800 Balance -800 Weight 56.7 kg Output: Urine 800 Other: Voiding Method Toilet Toilet Toilet # Voids 4 - Exam GENERAL EXAM: Alert, 23-year-old white female, comfortable in no apparent distress. HEAD: Normocephalic and atraumatic EYES: Normal reaction of pupils, equal size. NOSE: Clear with pink turbinates. THROAT: No erythema or exudates. NECK: No masses, no JVD. CHEST: No chest wall deformity. LUNGS: Equal air entry with no crackles, wheeze, rhonchi or dullness. On room air. No conversational dyspnea or accessory muscle use.. CVS: S1 and S2 normal with no audible murmur, regular rhythm. No extra heart sounds ABDOMEN: No hepatosplenomegaly, active bowel sounds, no guarding or rigidity. Suprapubic incision is clean, dry, and approximated with stella. SPINE: No scoliosis or deformity SKIN: No rashes CENTRAL NERVOUS SYSTEM: No focal deficits, tone is normal in all 4 extremities. EXTREMITIES: There is no peripheral edema, clubbing, or cyanosis. Peripheral pulses are intact. - Labs CBC & Chem 7: 05/28/23 09:21 05/27/23 09:14 Labs: Abnormal Lab Results - Last 24 Hours (Table) 05/28/23 Range/Units 09:21 RBC 3.19 L (3.80-5.40) m/uL Hgb 9.2 L (11.4-16.0) gm/dL Hct 28.7 L (34.0-46.0) % Microbiology - Last 24 Hours (Table) 05/26/23 08:40 Blood Culture - Preliminary Blood Assessment and Plan Assessment: Post operative day #3 following a right salpingectomy with excision of ectopic and evacuation of hemoperitoneum. Ectopic , abdominal ultrasound had findings consistent with ruptured ectopic with moderate amount of complex fluids within the right adnexa. Quantitative hCG was elevated at 4429. Hypovolemic shock, secondary to above. Requiring a transfusion of 3 units PRBCs, recovered Fluid volume overload, secondary to above. A follow-up chest CTA done yesterday showed no evidence of pulmonary embolism, there were small bilateral pleural effusions with bibasilar consolidation and multifocal dependent patchy ground was opacities and diffuse anasarca. Suspicious for volume overload with pulmonary edema. Superimposed infection could not be ruled out, but is felt to be less likely. There is also a pneumoperitoneum consistent with recent surgery. NT proBNP is elevated at 3440. Acute blood loss anemia, hemoglobin stable at 9.2 and essentially improving Elevated troponins, related to supply/demand mismatch. No ECG evidence of ischemia Acute kidney injury, prerenal, improved Bilateral pulmonary infiltrates, improving Plan: Patient is doing well and she has no specific complaints. The the wound is clean. Breathing is back to her baseline with a hemoglobin stable at 9.2. She is tolerating diet. She is ambulating. Pulmonary and critical care services will sign off the case.
[2023-05-28 10:49] LABS: African American GFR (CKD) >90 (>60 ml/min/1.73 sqM); Anion Gap 7 mmol/L; Blood Urea Nitrogen 11 mg/dL (7-17); Calcium 8.3 mg/dL (8.4-10.2); Carbon Dioxide 26 mmol/L (22-30); Chloride 104 mmol/L (98-107); Glucose 87 mg/dL (74-99); Magnesium 1.9 mg/dL (1.6-2.3); Non-African American GFR(CKD) >90 (>60 ml/min/1.73 sqM); Potassium 3.7 mmol/L (3.5-5.1); Sodium 137 mmol/L (137-145)
--- NOTE | 2023-05-28 11:33 | P.PN ---
Subjective Progress Note Date: 05/28/23 Patient is a 23-year-old female with no known past medical history who presented on 05/25 with ruptured ectopic . On arrival to the ER she was tachycardic with a pulse of 144 and was hypotensive with a blood pressure of 62/53. She was taken directly to the operating room where she is on have pneumonic peritoneum which was evacuated with excision of ectopic and right salpingectomy were performed on 05/25/23. She required 3 units of packed red blood cells. She then developed shortness of breath and had increasing O2 requirements. Her BNP was elevated at 3440. She was started on Lasix 20 mg IV push. She was subsequently transferred to the telemetry unit and cardiology and pulmonary were consulted. Her troponin elevated which was felt to be reflective of her hypovolemic shock. CT of the chest was completed which showed no evidence of pulmonary embolism but did show bilateral pleural effusions with multifocal dependent patchy round glass opacities. Echocardiogram demonstrated an ejection fraction of 35-60% with mild to moderate mitral regurgitation. Patient seen and examined at bedside. She is feeling much better today than yesterday. She has any nausea, chest pain, or shortness of breath. She would like to go home. She feels her breathing is doing well. Vital signs reviewed General: nontoxic, no distress, appears at stated age Cardiovascular: S1S2 reg, no murmur, positive posterior tibial pulse bilateral, Lungs: Decrease bs bilateral, no rhonchi, no rales , no accessory muscle use Abdominal: soft, + tender to palpation diffusely, no guarding, no appreciable organomegaly Ext: no gross muscle atrophy, no lower extremity edema, no contractures Neuro: CN II-XI grossly intact, no focal neuro deficits Psych: Alert, oriented, appropriate affect Assessment/Plan: Acute blood loss anemia related to ruptured ectopic and peritoneum -Case discussed with Dr. Willett. Cardiology and pulmonary signed off the case and cleared the patient for discharge. I do recommend ferrous sulfate to be continued for the next 30 days and have placed the order on the discharge. Hemorrhagic shock, resolved Thrombocytopenia, resolved Acute pulmonary edema, resolved Type II non-STEMI Hypokalemia, resolved Acute hypoxic respiratory failure, resolved medically optimized for discharge at the discretion of [employer]PER[employer] TECHNICAL DIRECTOR Data Review: Vitals reviewed temperature 97.7, pulse 77, respirations 15, blood pressure 109/75, O2 sat 97% on room air This dictation was prepared using [employer] voice recognition software. Though every attempt is made to correct errors during dictation some may still exist. Objective - Vital Signs Vital signs: Vital Signs Temp 97.7 F 05/28/23 08:00 Pulse 77 05/28/23 08:00 Resp 15 05/28/23 08:00 BP 109/75 05/28/23 08:00 Pulse Ox 97 05/28/23 08:00 FiO2 Intake & Output 05/27/23 05/28/23 05/28/23 18:59 06:59 18:59 Output Total 800 Balance -800 Weight 56.7 kg Output: Urine 800 Other: Voiding Method Toilet Toilet Toilet # Voids 4 - Labs CBC & Chem 7: 05/28/23 09:21 05/28/23 09:21 Labs: Abnormal Lab Results - Last 24 Hours (Table) 05/28/23 05/28/23 Range/Units 09:21 09:21 RBC 3.19 L (3.80-5.40) m/uL Hgb 9.2 L (11.4-16.0) gm/dL Hct 28.7 L (34.0-46.0) % Creatinine 0.50 L (0.52-1.04) mg/dL Calcium 8.3 L (8.4-10.2) mg/dL Microbiology - Last 24 Hours (Table) 05/26/23 08:40 Blood Culture - Preliminary Blood
[2023-05-28 12:29] VITALS: BP 113/70; PULSE 81; RESP 16; TEMP 98.3
--- NOTE | 2023-05-28 12:32 | P.DS ---
Providers Date of admission: 05/25/23 09:58 Expected date of discharge: 05/28/23 Attending physician: Hira Willett Consults: 05/25/23 09:28 Consult Physician Stat Consulting Provider: Hira Willett Consult Reason/Comments: surgery Do you want consulting provider notified?: Already Contacted 05/26/23 07:33 Consult Physician Urgent Consulting Provider: Kirill Lucas Consult Reason/Comments: Decreased oxygen saturation, elevated creatinine Do you want consulting provider notified?: Already Contacted 05/26/23 10:08 Consult Physician Urgent Consulting Provider: Sai Zarate Consult Reason/Comments: elevated troponin, CHF ,eptopic preg Do you want consulting provider notified?: Yes 05/26/23 17:34 Consult Physician Stat Consulting Provider: Luis F Delarosa Consult Reason/Comments: hypotension, SOB Do you want consulting provider notified?: Yes Primary care physician: Stated None - Discharge Diagnosis(es) (1) Abdominal pain affecting Current Visit: No Status: Acute (2) Ectopic Current Visit: No Status: Acute (3) Hemoperitoneum Current Visit: No Status: Acute Hospital Course: Please see dictated H&P and operative note on this patient's admission. In brief summary this is a pleasant 23-year-old 2 para 0 female admitted through the emergency department with hypotension and tachycardia and was found to have a ruptured ectopic with a massive hemoperitoneum. Patient underwent an emergent laparotomy with right salpingectomy and excision of ectopic . Please see dictated operative note. Postoperatively the patient received one unit of packed red blood cells and fluid resuscitation. Patient was monitored closely and due to persistent anemia was giving 2 more units of blood. Patient did develop some desaturation on postoperative day #1 was found to have some pulmonary edema/fluid overload. Cardiology, medicine, and pulmonology was counseled to and diuresis ensued. Patient did very well thereafter. On postoperative #3 patient was doing well enough she is felt to be stable for discharge home follow up with me in 1 week. She is continue to take iron therapy and her pain medications. She is given indications to call my office. Patient Condition at Discharge: Good Plan - Discharge Summary Discharge Rx Participant: No New Discharge Prescriptions: New Ibuprofen [Motrin] 600 mg PO Q6HR PRN #30 tab PRN Reason: Mild Discomfort Acetaminophen-Codeine 300-30mg [Tylenol w/codeine #3] 2 each PO Q6HR PRN #24 tab PRN Reason: Severe Pain (Scale 7 To 10) Ferrous Sulfate [Iron (65 MG Elemental)] 325 mg PO DAILY #30 tab Discharge Medication List Acetaminophen-Codeine 300-30mg [Tylenol w/codeine #3] 2 each PO Q6HR PRN #24 tab 05/28/23 [Rx] Ferrous Sulfate [Iron (65 MG Elemental)] 325 mg PO DAILY #30 tab 05/28/23 [Rx] Ibuprofen [Motrin] 600 mg PO Q6HR PRN #30 tab 05/28/23 [Rx] Follow up Appointment(s)/Referral(s): Hira Willett MD [STAFF PHYSICIAN] - 06/04/23 9:00 am Patient Instructions/Handouts: Ectopic (DC), Exploratory Laparotomy (DC) Activity/Diet/Wound Care/Special Instructions: No heavy lifting or strenuous activity for 6 weeks. No intercourse or anything per vaginal. Please call if any fever, chills, excessive vaginal bleeding and/or abdominal pain. Discharge Disposition: HOME SELF-CARE
--- NOTE | 2023-05-28 13:13 | P.PN ---
Subjective Progress Note Date: 05/28/23 HISTORY OF PRESENT ILLNESS: The patient is a 23-year-old female patient with no significant medical history from before who presented to the emergency department yesterday complaining of abdominal discomfort. She underwent an ultrasound and she was diagnosed with ruptured ectopic . She has been experiencing discomfort for the last few days associated with nausea and "feeling ill". Subsequently the patient was taken emergently to the OR and she underwent exploratory laparotomy and evacuation of about 1.5 L of blood from the precordium. During the surgery the patient was hypotensive and tachycardic. She received about 1.5 L of fluid as well. Because she was anemic afterward she received 2 units of packed RBC. We consulted to see the patient because of "heart failure". Earlier this morning she was not feeling well. She was experiencing shortness of breath was no chest pain or chest discomfort. She was hypoxic requiring 4 L of oxygen to maintain normal saturation. Further workup was performed including an EKG and that showed sinus tachycardia and NT proBNP and that came in to be about 3500. Because there was a concern about pulmonary embolism she underwent CTA of the chest and that showed no pulmonary embolism. The patient was given Lasix at 20 mg once and she diuresed extremely well and she felt better. Subsequently she was transferred to the third floor/cardiac monitoring. The patient has no prior medical history. Hemodynamically she continues to be slightly tachycardic with margin a low blood pressure with a systolic pressure around 90 mmHg. Also the patient's troponin was checked and came in to be mildly abnormal. 05/27/2023 Patient examined this morning at the bedside. Patient denies chest pain or pressure. She currently denies shortness of breath. She remains on Lasix 20 mg IV daily. Echocardiogram is pending. 05/28/2023 Patient examined this morning at the bedside. Patient denies chest pain or pressure. She denies shortness of breath. Echocardiogram completed revealing preserved LV systolic function. PHYSICAL EXAM: VITAL SIGNS: Reviewed. GENERAL: Well-developed in no acute distress. NECK: Supple. No JVD or thyromegaly LUNGS: Respirations even and unlabored. Lungs essentially clear to auscultation bilaterally. HEART: Regular rate and rhythm. S1 and S2 heard. EXTREMITIES: Normal range of motion. No clubbing or cyanosis. Peripheral pulses intact. No lower extremity edema ASSESSMENT: Acute abdomen, ruptured ectopic , hemoperitoneum, status post exploratory laparotomy with right salpingectomy with excision of ectopic pregna ncy and evacuation of hemoperitoneum Acute pulmonary edema Acute blood loss anemia Mildly abnormal troponin, no evidence of acute coronary syndrome, suspect secondary to hypotension/tachycardia Hypokalemia PLAN: Discontinue IV Lasix. No oral Lasix needed at this time. Patient is stable for discharge home today from a cardiac standpoint Nurse practitioner note has been reviewed by physician. Signing provider agrees with the documented findings, assessment, and plan of care. Objective - Vital Signs Vital signs: Vital Signs Temp 98.3 F 05/28/23 12:00 Pulse 81 05/28/23 12:00 Resp 16 05/28/23 12:00 BP 113/70 05/28/23 12:00 Pulse Ox 98 05/28/23 12:00 FiO2 Intake & Output 05/27/23 05/28/23 05/28/23 18:59 06:59 18:59 Output Total 800 Balance -800 Weight 56.7 kg Output: Urine 800 Other: Voiding Method Toilet Toilet Toilet # Voids 4 - Labs CBC & Chem 7: 05/28/23 09:21 05/28/23 09:21 Labs: Abnormal Lab Results - Last 24 Hours (Table) 05/28/23 05/28/23 Range/Units 09:21 09:21 RBC 3.19 L (3.80-5.40) m/uL Hgb 9.2 L (11.4-16.0) gm/dL Hct 28.7 L (34.0-46.0) % Creatinine 0.50 L (0.52-1.04) mg/dL Calcium 8.3 L (8.4-10.2) mg/dL Microbiology - Last 24 Hours (Table) 05/26/23 08:40 Blood Culture - Preliminary Blood
[2023-05-29] MEDS ORDERED: FUROSEMIDE 20 MG TAB PO SCH (09:00)
== END 2023-05-28 13:25 | disposition home or self-care (01) | DRG 817 ==
LOC: EC 08:25 → 4FBP 09:58 → 3SCARD 05-26 11:41
PROVIDERS: ADMIT Obstetrics & Gynecology; ATTEND Obstetrics & Gynecology
PROC: 30233P1 Transfusion of Nonautologous Frozen Red Cells into Peripheral Vein, Percutaneous Approach (ICD-10-PCS; 2023-05-25)
PROC: 0D9W0ZZ Drainage of Peritoneum, Open Approach (ICD-10-PCS; principal; 2023-05-25 10:00)
PROC: 10T20ZZ Resection of Products of Conception, Ectopic, Open Approach (ICD-10-PCS; principal; 2023-05-25 10:00)
PROC: 0UT50ZZ Resection of Right Fallopian Tube, Open Approach (ICD-10-PCS; principal; 2023-05-25 10:00)
DX: O00.101 Right tubal pregnancy without intrauterine pregnancy (principal); I21.A1 Myocardial infarction type 2; O08.3 Shock following ectopic and molar pregnancy; K66.1 Hemoperitoneum; J96.01 Acute respiratory failure with hypoxia; N17.9 Acute kidney failure, unspecified; O26.831 Pregnancy related renal disease, first trimester; O99.111 Other diseases of the blood and blood-forming organs and certain disorders involving the immune mechanism complicating pregnancy, first trimester; D62 Acute posthemorrhagic anemia; O99.411 Diseases of the circulatory system complicating pregnancy, first trimester; D69.6 Thrombocytopenia, unspecified; R00.0 Tachycardia, unspecified; O99.011 Anemia complicating pregnancy, first trimester; Z28.310 Unvaccinated for COVID-19; Z28.21 Immunization not carried out because of patient refusal; F17.290 Nicotine dependence, other tobacco product, uncomplicated; I11.0 Hypertensive heart disease with heart failure; I50.9 Heart failure, unspecified; I34.0 Nonrheumatic mitral (valve) insufficiency; E87.6 Hypokalemia; O99.281 Endocrine, nutritional and metabolic diseases complicating pregnancy, first trimester; O99.331 Smoking (tobacco) complicating pregnancy, first trimester; O99.511 Diseases of the respiratory system complicating pregnancy, first trimester; Z3A.01 Less than 8 weeks gestation of pregnancy
CPT/HCPCS: 36415; 36430; 36600; 71045; 71275; 76801; 76817; 80048; 80053; 82805; 83605; 83735; 83880; 84132; 84145; 84484; 84702; 85025; 85027; 86850; 86900; 86901; 86920; 87040; 88305; 93005; 93306; 96361; 96374; 96375; 99291

== ENCOUNTER 2023-08-31 02:13 | Emergency (ER) | payer OTHER ==
[2023-08-31] MEDS ORDERED: SODIUM CHLORIDE 0.9% 1,000 ML IV ONE (02:26)
[2023-08-31 02:41] VITALS: BP 136/95; PULSE 84; RESP 16; TEMP 98.2
--- NOTE | 2023-08-31 02:55 | ED ---
Female Urogenital HPI - General Source: patient Mode of arrival: ambulatory Limitations: no limitations - History of Present Illness Last Menstrual Period: 07/24/23 <Carlin Molina - Last Filed: 08/31/23 04:30> <Mason Craven - Last Filed: 08/31/23 05:17> - General Chief complaint: Vaginal Bleeding Stated complaint: Abdominal pain, Possible Ectopic Time Seen by Provider: 08/31/23 02:25 - History of Present Illness Initial comments: 23-year-old female with past medical history significant for a right salpingectomy and removal of ectopic 3 months ago. Patient states last menstrual period 07/24/2023. Rates that she was due for her. 2 days ago and reports that she had some spotting at that time and then stopped. Today states that she started to experience abdominal pain and felt as if she had to go to the bathroom. Upon going to the bathroom had brown discharge. Patient notes similar symptoms with prior ectopic and thus presented to the ED for further evaluation. At this time, patient reports no significant pain. No chest or shortness of breath. No other complaints. (Carlin Molina) - Related Data Previous Rx's Medication Instructions Recorded Acetaminophen-Codeine 300-30mg 2 each PO Q6HR PRN #24 tab 05/28/23 [Tylenol w/codeine #3] Ferrous Sulfate [Iron (65 MG 325 mg PO DAILY #30 tab 05/28/23 Elemental)] Ibuprofen [Motrin] 600 mg PO Q6HR PRN #30 tab 05/28/23 Allergies Allergy/AdvReac Type Severity Reaction Status Date / Time No Known Allergies Allergy Verified 08/31/23 02:19 Review of Systems ROS Other: All systems not noted in ROS Statement are negative. <Carlin Molina - Last Filed: 08/31/23 04:30> ROS Other: All systems not noted in ROS Statement are negative. <Mason Craven - Last Filed: 08/31/23 05:17> ROS Statement: Those systems with pertinent positive or pertinent negative responses have been documented in the HPI. Past Medical History Past Medical History: No Reported History History of Any Multi-Drug Resistant Organisms: None Reported Past Surgical History: Breast Surgery Additional Past Surgical History / Comment(s): ectopic Past Anesthesia/Blood Transfusion Reactions: No Reported Reaction Past Psychological History: No Psychological Hx Reported Smoking Status: Vaper Past Alcohol Use History: Occasional Past Drug Use History: None Reported - Past Family History Father Family Medical History: No Reported History <Carlin Molina - Last Filed: 08/31/23 04:30> General Exam Limitations: no limitations Neck exam: Present: normal inspection Respiratory exam: Present: normal lung sounds bilaterally Cardiovascular Exam: Present: regular rate, normal rhythm GI/Abdominal exam: Present: soft External exam: Present: other (Exam chaperoned by Karina MOON. Patient does have brown discharge in vaginal vault. Cervix poorly visualized due to poor patient tolerated ability however does not appear open.) Neurological exam: Present: alert, oriented X3 Skin exam: Present: warm, dry <Carlin Molina - Last Filed: 08/31/23 04:30> Course Vital Signs 08/31/23 02:19 Temperature 98.2 F Pulse Rate 84 Respiratory 16 Rate Blood Pressure 136/95 O2 Sat by Pulse 100 Oximetry Medical Decision Making - Lab Data Result diagrams: 08/31/23 02:40 08/31/23 02:41 <Carlin Molina - Last Filed: 08/31/23 04:30> - Lab Data Result diagrams: 08/31/23 02:40 08/31/23 02:41 <Mason Craven - Last Filed: 08/31/23 05:17> - Medical Decision Making Was pt. sent in by a medical professional or institution ([facility], [facility], urgent care, hospital, or skilled nursing...) When possible be specific @ -No Did you speak to anyone other than the patient for history (EMS, parent, family, police, friend...)? What history was obtained from this source @ -No Did you review nursing and triage notes (agree or disagree)? Why? @ -I reviewed and agree with nursing and triage notes Were old charts reviewed (outside hosp., previous admission, EMS record, old EKG, old radiological studies, urgent care reports/EKG's, skilled nursing records)? Report findings @ -No old charts were reviewed Differential Diagnosis (chest pain, altered mental status, abdominal pain women, abdominal pain men, vaginal bleeding, weakness, fever, dyspnea, syncope, headache, dizziness, GI bleed, back pain, seizure, CVA, palpatations, mental health, musculoskeletal)? @ -Differential Abdominal Pain Women: Appendicitis, Cholecystitis, diverticulosis, ischemic bowel, pancreatitis, hepatitis, UTI, gastroenteritis, AAA, incarcerated hernia, bowel obstruction, constipation, inflammatory bowel, hepatitis, peptic ulcer disease, splenic infarction, perforated viscus, vulvitis, ovarian torsion, PID, kidney stone, placenta abruption, this is not meant to be an all-inclusive list EKG interpreted by me (3pts min.). @ -None X-rays interpreted by me (1pt min.). @ -None done CT interpreted by me (1pt min.). @ -None done U/S interpreted by me (1pt. min.). @ -None done What testing was considered but not performed or refused? (CT, X-rays, U/S, labs)? Why? @ -STD testing and bimanual exam were discussed with patient. Patient did have brown vaginal discharge on vaginal exam and with complaints of abdominal pain there was some concern for pelvic inflammatory disease. Patient reports that she was just tested for STDs approximately year ago and has been with her boyfriend for the last 2 years and has no concerns about any STDs. States that she was not having any abnormal vaginal discharge or discomfort in the days prior to this and deferred bimanual examination STD testing. Patient reports that she does have follow-up with her [facility] this Saturday and if still concern for STDs or continued discharge will follow with him. Patient follows with Dr. Willett. What meds were considered but not given or refused? Why? @ -None Did you discuss the management of the patient with other professionals (professionals i.e. , PA, MOVER, lab, RT, psych nurse, social worker assistant, intellectual property lawyer, teacher, loan servicing officer, case operator)? Give summary @ -No Was smoking cessation discussed for >3mins.? @ -No Was critical care preformed (if so, how long)? @ -No Were there social determinants of health that impacted care today? How? (Homelessness, low income, unemployed, alcoholism, drug addiction, transportation, low edu. Level, literacy, decrease access to med. care, usp, rehab)? @ -No Was there de-escalation of care discussed even if they declined (Discuss DNR or withdrawal of care, Hospice)? DNR status @ -No What co-morbidities impacted this encounter? (DM, HTN, Smoking, COPD, CAD, Cancer, CVA, ARF, Chemo, Hep., AIDS, mental health diagnosis, sleep apnea, morbid obesity)? @ -None Was patient admitted / discharged? Hospital course, mention meds given and route, prescriptions, significant lab abnormalities, going to OR and other pertinent info. @ -Pending A 23-year-old female presented to the ED with 1 day history of right lower abdominal pain and vaginal discharge with concerns for ectopic . Laboratory studies obtained and significant for an hCG quant is less than 2.4. Remainder of laboratory studies at this time unremarkable however UA pending. Case signed out to Dr. Craven for further disposition (Carlin Molina) Patient signed out to me to follow up on urinalysis. Urinalysis unremarkable. No evidence of infection. She'll be discharged home at this time. Diagnosis/symptom? @ -Abdominal pain of unknown etiology Acute, or Chronic, or Acute on Chronic? @ -Acute Uncomplicated (without systemic symptoms) or Complicated (systemic symptoms)? @ -Uncomplicated Side effects of treatment? @ -none Exacerbation, Progression, or Severe Exacerbation] @ -no Poses a threat to life or bodily function? @ -no (Mason Craven) - Lab Data Lab Results 08/31/23 08/31/23 08/31/23 Range/Units 02:39 02:40 02:40 WBC 7.3 (3.8-10.6) k/uL RBC 4.55 (3.80-5.40) m/uL Hgb 13.7 (11.4-16.0) gm/dL Hct 40.0 (34.0-46.0) % MCV 88.0 (80.0-100.0) fL MCH 30.1 (25.0-35.0) pg MCHC 34.2 (31.0-37.0) g/dL RDW 12.5 (11.5-15.5) % Plt Count 256 (150-450) k/uL MPV 7.9 Neutrophils % 53 % Lymphocytes % 34 % Monocytes % 6 % Eosinophils % 3 % Basophils % 1 % Neutrophils # 3.9 (1.3-7.7) k/uL Lymphocytes # 2.5 (1.0-4.8) k/uL Monocytes # 0.5 (0-1.0) k/uL Eosinophils # 0.3 (0-0.7) k/uL Basophils # 0.1 (0-0.2) k/uL PT 10.6 (10.0-12.5) sec INR 1.0 (<1.2) APTT 30.4 H (22.0-30.0) sec Sodium (137-145) mmol/L Potassium (3.5-5.1) mmol/L Chloride (98-107) mmol/L Carbon Dioxide (22-30) mmol/L Anion Gap mmol/L BUN (7-17) mg/dL Creatinine (0.52-1.04) mg/dL Est GFR (CKD-EPI)AfAm (>60 ml/min/1.73 sqM) Est GFR (CKD-EPI)NonAf (>60 ml/min/1.73 sqM) Glucose (74-99) mg/dL Calcium (8.4-10.2) mg/dL Total Bilirubin (0.2-1.3) mg/dL AST (14-36) U/L ALT (4-34) U/L Alkaline Phosphatase (38-126) U/L Total Protein (6.3-8.2) g/dL Albumin (3.5-5.0) g/dL HCG, Quant mIU/mL Urine Color Urine Appearance (Clear) Urine pH (5.0-8.0) Ur Specific [place] (1.001-1.035) Urine Protein (Negative) Urine Glucose (UA) (Negative) Urine Ketones (Negative) Urine Blood (Negative) Urine Nitrite (Negative) Urine Bilirubin (Negative) Urine Urobilinogen (<2.0) mg/dL Ur Leukocyte Esterase (Negative) Urine RBC (0-5) /hpf Urine WBC (0-5) /hpf Ur Squamous Epith Cells (0-4) /hpf Urine Bacteria (None) /hpf Urine Mucus (None) /hpf Blood Type O Positive Blood Type Recheck O Pos Bld Type Recheck Status No Antibody Screen NEGATIVE Spec Expiration Date 09/03/2023 - 233808/31/23 08/31/23 Range/Units 02:41 04:33 WBC (3.8-10.6) k/uL RBC (3.80-5.40) m/uL Hgb (11.4-16.0) gm/dL Hct (34.0-46.0) % MCV (80.0-100.0) fL MCH (25.0-35.0) pg MCHC (31.0-37.0) g/dL RDW (11.5-15.5) % Plt Count (150-450) k/uL MPV Neutrophils % % Lymphocytes % % Monocytes % % Eosinophils % % Basophils % % Neutrophils # (1.3-7.7) k/uL Lymphocytes # (1.0-4.8) k/uL Monocytes # (0-1.0) k/uL Eosinophils # (0-0.7) k/uL Basophils # (0-0.2) k/uL PT (10.0-12.5) sec INR (<1.2) APTT (22.0-30.0) sec Sodium 139 (137-145) mmol/L Potassium 3.8 (3.5-5.1) mmol/L Chloride 102 (98-107) mmol/L Carbon Dioxide 25 (22-30) mmol/L Anion Gap 12 mmol/L BUN 12 (7-17) mg/dL Creatinine 0.66 (0.52-1.04) mg/dL Est GFR (CKD-EPI)AfAm >90 (>60 ml/min/1.73 sqM) Est GFR (CKD-EPI)NonAf >90 (>60 ml/min/1.73 sqM) Glucose 100 H (74-99) mg/dL Calcium 9.6 (8.4-10.2) mg/dL Total Bilirubin 0.6 (0.2-1.3) mg/dL AST 20 (14-36) U/L ALT 13 (4-34) U/L Alkaline Phosphatase 56 (38-126) U/L Total Protein 8.0 (6.3-8.2) g/dL Albumin 4.6 (3.5-5.0) g/dL HCG, Quant <2.4 mIU/mL Urine Color Light Yellow Urine Appearance Cloudy H (Clear) Urine pH 6.5 (5.0-8.0) Ur Specific [place] 1.025 (1.001-1.035) Urine Protein Negative (Negative) Urine Glucose (UA) Negative (Negative) Urine Ketones 2+ H (Negative) Urine Blood Small H (Negative) Urine Nitrite Negative (Negative) Urine Bilirubin Negative (Negative) Urine Urobilinogen <2.0 (<2.0) mg/dL Ur Leukocyte Esterase Negative (Negative) Urine RBC 1 (0-5) /hpf Urine WBC 1 (0-5) /hpf Ur Squamous Epith Cells 2 (0-4) /hpf Urine Bacteria Rare H (None) /hpf Urine Mucus Many H (None) /hpf Blood Type Blood Type Recheck Bld Type Recheck Status Antibody Screen Spec Expiration Date Disposition <Carlin Molina - Last Filed: 08/31/23 04:30> Is patient prescribed a controlled substance at d/c from ED?: No Time of Disposition: 05:10 <Mason Craven - Last Filed: 08/31/23 05:17> Clinical Impression: Abdominal pain of unknown etiology Disposition: HOME SELF-CARE Condition: Good Instructions (If sedation given, give patient instructions): Abdominal Pain (ED) Referrals: None,Stated [Primary Care Provider] - 1-2 days
[2023-08-31 02:56] LABS: Basophils # (A) 0.1 k/uL (0-0.2); Basophils % (A) 1 %; Eosinophils # (A) 0.3 k/uL (0-0.7); Eosinophils % (A) 3 %; HGB 13.7 gm/dL (11.4-16.0); Lymphocytes # (A) 2.5 k/uL (1.0-4.8); Lymphocytes % (A) 34 %; MCH 30.1 pg (25.0-35.0); MCHC 34.2 g/dL (31.0-37.0); Mean Platelet Volume 7.9; Monocytes # (A) 0.5 k/uL (0-1.0); Monocytes % (A) 6 %; Neutrophils # (A) 3.9 k/uL (1.3-7.7); Neutrophils % (A) 53 %; Platelet Count 256 k/uL (150-450); RBC 4.55 m/uL (3.80-5.40); RDW 12.5 % (11.5-15.5); WBC 7.3 k/uL (3.8-10.6)
[2023-08-31 03:00] LABS: Partial Thromboplastin Time 30.4 sec (22.0-30.0); Prothrombin Time 10.6 sec (10.0-12.5)
[2023-08-31 03:10] LABS: ALT 13 U/L (4-34); AST 20 U/L (14-36); African American GFR (CKD) >90 (>60 ml/min/1.73 sqM); Albumin 4.6 g/dL (3.5-5.0); Alkaline Phosphatase 56 U/L (38-126); Anion Gap 12 mmol/L; Blood Urea Nitrogen 12 mg/dL (7-17); Calcium 9.6 mg/dL (8.4-10.2); Carbon Dioxide 25 mmol/L (22-30); Chloride 102 mmol/L (98-107); Glucose 100 mg/dL (74-99); Non-African American GFR(CKD) >90 (>60 ml/min/1.73 sqM); Potassium 3.8 mmol/L (3.5-5.1); Sodium 139 mmol/L (137-145); Total Bilirubin 0.6 mg/dL (0.2-1.3)
[2023-08-31 03:30] LABS: HCG,Quantitative Serum <2.4 mIU/mL
[2023-08-31 04:53] LABS: Appearance,Urine Cloudy (Clear); Bacteria,Urine Rare /hpf; Bilirubin,Urine Negative (Negative); Blood,Urine Small (Negative); Color,Urine Light Yellow; Glucose,Urine (UA) Negative (Negative); Ketones,Urine 2+ (Negative); Leukocyte Esterase,Urine Negative (Negative); Mucus,Urine Many /hpf; Nitrite,Urine Negative (Negative); PH, Urine 6.5 (5.0-8.0); Protein,Urine Negative (Negative); RBC,Urine 1 /hpf (0-5); Specific Gravity,Urine 1.025 (1.001-1.035); Squamous Epithelial Cell,Urine 2 /hpf (0-4); Urobilinogen,Urine <2.0 mg/dL (<2.0); WBC,Urine 1 /hpf (0-5)
== END 2023-08-31 05:01 | disposition home or self-care (01) ==
LOC: EC 02:13
DX: R10.31 Right lower quadrant pain (principal); F17.290 Nicotine dependence, other tobacco product, uncomplicated
CPT/HCPCS: 36415; 80053; 81001; 84702; 85025; 85610; 85730; 86850; 86900; 86901; 96360; 99284; 99285

== ENCOUNTER 2024-03-18 17:13 | Emergency (ER) | payer OTHER ==
--- NOTE | 2024-03-18 17:54 | ED ---
Recheck HPI - General Chief Complaint: Recheck/Abnormal Lab/Rx Stated Complaint: Bruising Time Seen by Provider: 03/18/24 17:35 Source: patient, RN notes reviewed Mode of arrival: ambulatory Limitations: no limitations - History of Present Illness Initial Comments: This is a 24-year-old female emergency room with chief complaint of a bump in her groin and abnormal bruising. Patient states that she underwent ectopic surgery last year and since this time she has experienced some mild discomfort of her right groin that is worse with increase in intra-abdominal pressure and with physical exercise. Additionally, patient notes that she has noticed bruising on her left arm, bilateral lower extremities that has appeared without known source of trauma or injury. She denies night sweats, epistaxis, bleeding from gums, abnormal bleeding, fatigue, weakness, or weight loss. Patient states that she has been anxious while ruminating over the possibilities of her symptoms. - Related Data Previous Rx's Medication Instructions Recorded Acetaminophen-Codeine 300-30mg 2 each PO Q6HR PRN #24 tab 05/28/23 [Tylenol w/codeine #3] Ferrous Sulfate [Iron (65 MG 325 mg PO DAILY #30 tab 05/28/23 Elemental)] Ibuprofen [Motrin] 600 mg PO Q6HR PRN #30 tab 05/28/23 Allergies Allergy/AdvReac Type Severity Reaction Status Date / Time No Known Allergies Allergy Verified 03/18/24 17:20 Review of Systems ROS Statement: Those systems with pertinent positive or pertinent negative responses have been documented in the HPI. ROS Other: All systems not noted in ROS Statement are negative. Past Medical History Past Medical History: No Reported History History of Any Multi-Drug Resistant Organisms: None Reported Past Surgical History: Breast Surgery Additional Past Surgical History / Comment(s): ectopic Past Anesthesia/Blood Transfusion Reactions: No Reported Reaction Past Psychological History: No Psychological Hx Reported Smoking Status: Vaper Past Alcohol Use History: Occasional Past Drug Use History: None Reported - Past Family History Father Family Medical History: No Reported History General Exam Limitations: no limitations General appearance: alert, in no apparent distress Head exam: Present: atraumatic, normocephalic, normal inspection Eye exam: Present: normal appearance, PERRL, EOMI. Absent: scleral icterus, conjunctival injection, periorbital swelling ENT exam: Present: normal exam, mucous membranes moist Neck exam: Present: normal inspection. Absent: tenderness, meningismus, lymphadenopathy Respiratory exam: Present: normal lung sounds bilaterally. Absent: respiratory distress, wheezes, rales, rhonchi, stridor Cardiovascular Exam: Present: regular rate, normal rhythm, normal heart sounds. Absent: systolic murmur, diastolic murmur, rubs, gallop, clicks GI/Abdominal exam: Present: soft, normal bowel sounds. Absent: distended, tenderness, guarding, rebound, rigid Extremities exam: Present: normal inspection, full ROM, normal capillary refill. Absent: tenderness, pedal edema, joint swelling, calf tenderness Back exam: Present: normal inspection Neurological exam: Present: alert, oriented X3, CN II-XII intact Psychiatric exam: Present: normal affect, normal mood Skin exam: Present: warm, dry, intact, normal color, other (ecchymosis on the anterior left knee, posterior left arm, posterior right leg. ). Absent: rash, cyanosis, diaphoretic, erythema, urticaria Course Vital Signs 03/18/24 03/18/24 03/18/24 17:18 18:58 19:37 Temperature 98.5 F 98 F 98.5 F Pulse Rate 102 H 118 H 90 Respiratory 18 18 16 Rate Blood Pressure 168/122 157/103 131/93 O2 Sat by Pulse 100 100 99 Oximetry Medical Decision Making - Medical Decision Making Was pt. sent in by a medical professional or institution (Dr. PA, HANDLE AND VENT MACHINE OPERATOR, urgent care, hospital, or halfway...) When possible be specific @ -No Did you speak to anyone other than the patient for history (EMS, parent, family, police, friend...)? What history was obtained from this source @ -No Did you review nursing and triage notes (agree or disagree)? Why? @ -I reviewed and agree with nursing and triage notes Were old charts reviewed (outside hosp., previous admission, EMS record, old EKG, old radiological studies, urgent care reports/EKG's, halfway records)? Report findings @ -No old charts were reviewed Differential Diagnosis (chest pain, altered mental status, abdominal pain women, abdominal pain men, vaginal bleeding, weakness, fever, dyspnea, syncope, headache, dizziness, GI bleed, back pain, seizure, CVA, palpatations, mental health, musculoskeletal)? @ -inguinal hernia, anxiety, thrombocytopenia, Anemia, enlarged lymph node, ecchymosis, bruising, this list is not all inclusive EKG interpreted by me (3pts min.). @ -none X-rays interpreted by me (1pt min.). @ -None done CT interpreted by me (1pt min.). @ -None done U/S interpreted by me (1pt. min.). @ -None done What testing was considered but not performed or refused? (CT, X-rays, U/S, labs)? Why? @ -None What meds were considered but not given or refused? Why? @ -None Did you discuss the management of the patient with other professionals (prof chris i.e. , PA, HANDLE AND VENT MACHINE OPERATOR, lab, RT, psych nurse, 7th grade social studies teacher, baker helper, teacher, county records management officer, rn case manager)? Give summary @ -No Was smoking cessation discussed for >3mins.? @ -No Was critical care preformed (if so, how long)? @ -No Were there social determinants of health that impacted care today? How? (Homelessness, low income, unemployed, alcoholism, drug addiction, transportation, low edu. Level, literacy, decrease access to med. care, [facility], rehab)? @ -No Was there de-escalation of care discussed even if they declined (Discuss DNR or withdrawal of care, Hospice)? DNR status @ -No What co-morbidities impacted this encounter? (DM, HTN, Smoking, COPD, CAD, Cancer, CVA, ARF, Chemo, Hep., AIDS, mental health diagnosis, sleep apnea, morbid obesity)? @ -None Was patient admitted / discharged? Hospital course, mention meds given and route, prescriptions, significant lab abnormalities, going to OR and other pertinent info. @ -Is a 24-year-old female chief complaint of a bump in her right groin and abnormal bruising. On examination patient noted to have a roughly half centimeter area on her groin that is compatible with a inguinal hernia due to patient's history and physical examination. There is noted to be mild ecchymosis noted over the patient's anterior left knee, posterior right leg, forearms. At this time basic labs were obtained for broad evaluation of potential anemia, electrolyte abnormalities, or chance of . Patient CBC, CMP and coagulation profile unremarkable. Additionally, patient's urinalysis not concerning for infection and negative. At this time there is low clinical suspicion for further evaluation for abnormal bruising, minimal concern for clotting disorders or signs of leukemia. Discussed with patient and hernia care at home and strict return parameters. Recommend the patient follows up with her primary care provider next week for further evaluation. Patient is in agreement with plan. Case discussed with Dr. Luda costa Undiagnosed new problem with uncertain prognosis? @ -No Drug Therapy requiring intensive monitoring for toxicity (Heparin, Nitro, Insulin, Cardizem)? @ -No Were any procedures done? @ -No Diagnosis/symptom? @ -Inguinal hernia Acute, or Chronic, or Acute on Chronic? @ -Acute Uncomplicated (without systemic symptoms) or Complicated (systemic symptoms)? @ -uncomplicated Side effects of treatment? @ -No Exacerbation, Progression, or Severe Exacerbation? @ -No Poses a threat to life or bodily function? How? (Chest pain, [place], [place], pneumonia, PE, COPD, DKA, ARF, appy, cholecystitis, CVA, Diverticulitis, Homicidal, Suicidal, threat to staff... and all critical care pts) @ -No - Lab Data Result diagrams: 03/18/24 18:46 03/18/24 18:46 Lab Results 03/18/24 03/18/24 03/18/24 Range/Units 18:46 18:46 18:46 WBC 5.8 (3.8-10.6) k/uL RBC 4.60 (3.80-5.40) m/uL Hgb 13.8 (11.4-16.0) gm/dL Hct 42.7 (34.0-46.0) % MCV 92.8 (80.0-100.0) fL MCH 30.0 (25.0-35.0) pg MCHC 32.3 (31.0-37.0) g/dL RDW 11.9 (11.5-15.5) % Plt Count 292 (150-450) k/uL MPV 8.0 Neutrophils % 67 % Lymphocytes % 24 % Monocytes % 5 % Eosinophils % 2 % Basophils % 1 % Neutrophils # 3.8 (1.3-7.7) k/uL Lymphocytes # 1.4 (1.0-4.8) k/uL Monocytes # 0.3 (0-1.0) k/uL Eosinophils # 0.1 (0-0.7) k/uL Basophils # 0.0 (0-0.2) k/uL PT (10.0-12.5) sec INR (<1.2) APTT (22.0-30.0) sec Sodium (137-145) mmol/L Potassium (3.5-5.1) mmol/L Chloride (98-107) mmol/L Carbon Dioxide (22-30) mmol/L Anion Gap mmol/L BUN (7-17) mg/dL Creatinine (0.52-1.04) mg/dL Est GFR (CKD-EPI)AfAm (>60 ml/min/1.73 sqM) Est GFR (CKD-EPI)NonAf (>60 ml/min/1.73 sqM) Glucose (74-99) mg/dL Calcium (8.4-10.2) mg/dL Total Bilirubin (0.2-1.3) mg/dL AST (14-36) U/L ALT (4-34) U/L Alkaline Phosphatase (38-126) U/L Total Protein (6.3-8.2) g/dL Albumin (3.5-5.0) g/dL Urine Color Yellow Urine Appearance Turbid H (Clear) Urine pH 7.0 (5.0-8.0) Ur Specific [place] 1.026 (1.001-1.035) Urine Protein Trace H (Negative) Urine Glucose (UA) Negative (Negative) Urine Ketones Trace H (Negative) Urine Blood Trace H (Negative) Urine Nitrite Negative (Negative) Urine Bilirubin Negative (Negative) Urine Urobilinogen <2.0 (<2.0) mg/dL Ur Leukocyte Esterase Negative (Negative) Urine RBC 2 (0-5) /hpf Urine WBC <1 (0-5) /hpf Ur Squamous Epith Cells 9 H (0-4) /hpf Amorphous Sediment Rare H (None) /hpf Urine Mucus Many H (None) /hpf Urine HCG, Qual Not Detected (Not Detectd) 03/18/24 03/18/24 Range/Units 18:46 18:46 WBC (3.8-10.6) k/uL RBC (3.80-5.40) m/uL Hgb (11.4-16.0) gm/dL Hct (34.0-46.0) % MCV (80.0-100.0) fL MCH (25.0-35.0) pg MCHC (31.0-37.0) g/dL RDW (11.5-15.5) % Plt Count (150-450) k/uL MPV Neutrophils % % Lymphocytes % % Monocytes % % Eosinophils % % Basophils % % Neutrophils # (1.3-7.7) k/uL Lymphocytes # (1.0-4.8) k/uL Monocytes # (0-1.0) k/uL Eosinophils # (0-0.7) k/uL Basophils # (0-0.2) k/uL PT 10.8 (10.0-12.5) sec INR 1.0 (<1.2) APTT 29.8 (22.0-30.0) sec Sodium 137 (137-145) mmol/L Potassium 3.9 (3.5-5.1) mmol/L Chloride 103 (98-107) mmol/L Carbon Dioxide 25 (22-30) mmol/L Anion Gap 9 mmol/L BUN 11 (7-17) mg/dL Creatinine 0.57 (0.52-1.04) mg/dL Est GFR (CKD-EPI)AfAm >90 (>60 ml/min/1.73 sqM) Est GFR (CKD-EPI)NonAf >90 (>60 ml/min/1.73 sqM) Glucose 96 (74-99) mg/dL Calcium 9.6 (8.4-10.2) mg/dL Total Bilirubin 0.7 (0.2-1.3) mg/dL AST 26 (14-36) U/L ALT 20 (4-34) U/L Alkaline Phosphatase 55 (38-126) U/L Total Protein 8.3 H (6.3-8.2) g/dL Albumin 5.0 (3.5-5.0) g/dL Urine Color Urine Appearance (Clear) Urine pH (5.0-8.0) Ur Specific [place] (1.001-1.035) Urine Protein (Negative) Urine Glucose (UA) (Negative) Urine Ketones (Negative) Urine Blood (Negative) Urine Nitrite (Negative) Urine Bilirubin (Negative) Urine Urobilinogen (<2.0) mg/dL Ur Leukocyte Esterase (Negative) Urine RBC (0-5) /hpf Urine WBC (0-5) /hpf Ur Squamous Epith Cells (0-4) /hpf Amorphous Sediment (None) /hpf Urine Mucus (None) /hpf Urine HCG, Qual (Not Detectd) Disposition Clinical Impression: Inguinal hernia Narrative: Please return to the Emergency Department if symptoms worsen or any other concerns. Disposition: HOME SELF-CARE Condition: Good Instructions (If sedation given, give patient instructions): Inguinal Hernia (ED) Is patient prescribed a controlled substance at d/c from ED?: No Referrals: None,Stated [Primary Care Provider] - 1-2 days Time of Disposition: 19:24
[2024-03-18 18:56] LABS: Basophils % (A) 1 %; Eosinophils # (A) 0.1 k/uL (0-0.7); Eosinophils % (A) 2 %; HCT 42.7 % (34.0-46.0); HGB 13.8 gm/dL (11.4-16.0); Lymphocytes # (A) 1.4 k/uL (1.0-4.8); Lymphocytes % (A) 24 %; MCHC 32.3 g/dL (31.0-37.0); MCV 92.8 fL (80.0-100.0); Monocytes # (A) 0.3 k/uL (0-1.0); Monocytes % (A) 5 %; Neutrophils # (A) 3.8 k/uL (1.3-7.7); Neutrophils % (A) 67 %; Platelet Count 292 k/uL (150-450); RDW 11.9 % (11.5-15.5); WBC 5.8 k/uL (3.8-10.6)
[2024-03-18 19:04] LABS: ALT 20 U/L (4-34); AST 26 U/L (14-36); African American GFR (CKD) >90 (>60 ml/min/1.73 sqM); Alkaline Phosphatase 55 U/L (38-126); Anion Gap 9 mmol/L; Blood Urea Nitrogen 11 mg/dL (7-17); Calcium 9.6 mg/dL (8.4-10.2); Carbon Dioxide 25 mmol/L (22-30); Chloride 103 mmol/L (98-107); Glucose 96 mg/dL (74-99); Non-African American GFR(CKD) >90 (>60 ml/min/1.73 sqM); Potassium 3.9 mmol/L (3.5-5.1); Sodium 137 mmol/L (137-145); Total Bilirubin 0.7 mg/dL (0.2-1.3); Total Protein 8.3 g/dL (6.3-8.2)
[2024-03-18 19:14] LABS: Partial Thromboplastin Time 29.8 sec (22.0-30.0); Prothrombin Time 10.8 sec (10.0-12.5)
[2024-03-18 19:36] LABS: Amorphous Sediment,Urine Rare /hpf; Appearance,Urine Turbid (Clear); Bilirubin,Urine Negative (Negative); Blood,Urine Trace (Negative); Color,Urine Yellow; Glucose,Urine (UA) Negative (Negative); Ketones,Urine Trace (Negative); Leukocyte Esterase,Urine Negative (Negative); Mucus,Urine Many /hpf; Nitrite,Urine Negative (Negative); Protein,Urine Trace (Negative); RBC,Urine 2 /hpf (0-5); Specific Gravity,Urine 1.026 (1.001-1.035); Squamous Epithelial Cell,Urine 9 /hpf (0-4); Urobilinogen,Urine <2.0 mg/dL (<2.0); WBC,Urine <1 /hpf (0-5)
[2024-03-18 19:50] VITALS: BP 131/93; PULSE 90; RESP 16; TEMP 98.5
== END 2024-03-18 19:37 | disposition home or self-care (01) ==
LOC: EC 17:13
DX: K40.90 Unilateral inguinal hernia, without obstruction or gangrene, not specified as recurrent (principal); F17.290 Nicotine dependence, other tobacco product, uncomplicated
CPT/HCPCS: 36415; 80053; 81001; 81025; 85025; 85610; 85730; 99283

== ENCOUNTER 2024-05-29 23:50 | Emergency (ER) | payer OTHER ==
--- NOTE | 2024-05-30 01:36 | ED ---
General Adult HPI - General Chief complaint: Animal Bite Stated complaint: Bug bite, swollen neck and lymph nodes Time Seen by Provider: 05/30/24 00:01 Source: patient, RN notes reviewed Mode of arrival: ambulatory Limitations: no limitations - History of Present Illness Initial comments: 24-year-old female presents to the emergency department for evaluation of likely at the lower left side of her neck. She states that this happened around 10 days ago. She states she is unsure what could have been bug it was. She notes that following this she noticed some swelling in her lymph nodes. She was started on Keflex twice daily by urgent care yesterday. She has taken 2 doses today. She denies fever, chills, difficulty swallowing or breathing, neck stiffness. - Related Data Previous Rx's Medication Instructions Recorded Acetaminophen-Codeine 300-30mg 2 each PO Q6HR PRN #24 tab 05/28/23 [Tylenol w/codeine #3] Ferrous Sulfate [Iron (65 MG 325 mg PO DAILY #30 tab 05/28/23 Elemental)] Ibuprofen [Motrin] 600 mg PO Q6HR PRN #30 tab 05/28/23 Cephalexin [Keflex] 500 mg PO Q6HR #40 cap 05/30/24 Triamcinolone 0.1% Ointment 1 applic TOPICAL BID #15 gm 05/30/24 [Kenalog 0.1% Ointment] Allergies Allergy/AdvReac Type Severity Reaction Status Date / Time No Known Allergies Allergy Verified 05/29/24 23:56 Review of Systems ROS Statement: Those systems with pertinent positive or pertinent negative responses have been documented in the HPI. ROS Other: All systems not noted in ROS Statement are negative. Past Medical History Past Medical History: No Reported History History of Any Multi-Drug Resistant Organisms: None Reported Past Surgical History: Breast Surgery Additional Past Surgical History / Comment(s): ectopic Past Anesthesia/Blood Transfusion Reactions: No Reported Reaction Past Psychological History: No Psychological Hx Reported Smoking Status: Vaper Past Alcohol Use History: Occasional Past Drug Use History: None Reported - Past Family History Father Family Medical History: No Reported History General Exam Limitations: no limitations General appearance: alert, in no apparent distress Head exam: Present: atraumatic, normocephalic, normal inspection Eye exam: Present: normal appearance, PERRL, EOMI. Absent: scleral icterus, conjunctival injection, periorbital swelling ENT exam: Present: normal exam, mucous membranes moist, TM's normal bilaterally, normal external ear exam Neck exam: Present: full ROM, lymphadenopathy, other (Pinpoint erythematous lesion to the left side of the neck) Respiratory exam: Present: normal lung sounds bilaterally. Absent: respiratory distress, wheezes, rales, rhonchi, stridor Cardiovascular Exam: Present: regular rate, normal rhythm, normal heart sounds. Absent: systolic murmur, diastolic murmur, rubs, gallop, clicks Extremities exam: Present: normal inspection, full ROM, normal capillary refill. Absent: tenderness, pedal edema, joint swelling, calf tenderness Neurological exam: Present: alert, oriented X3 Psychiatric exam: Present: normal affect, normal mood Skin exam: Present: warm, dry, intact, normal color. Absent: rash Course Vital Signs 05/29/24 05/30/24 23:52 01:49 Temperature 98.4 F 98.2 F Pulse Rate 114 H 88 Respiratory 20 18 Rate Blood Pressure 144/84 128/83 O2 Sat by Pulse 99 99 Oximetry Medical Decision Making - Medical Decision Making Was pt. sent in by a medical professional or institution (MAN Ruelas, COAL CONVEYOR OPERATOR, urgent care, hospital, or [facility]...) When possible be specific @ -No Did you speak to anyone other than the patient for history (EMS, parent, family, police, friend...)? What history was obtained from this source @ -No Did you review nursing and triage notes (agree or disagree)? Why? @ -I reviewed and agree with nursing and triage notes Were old charts reviewed (outside hosp., previous admission, EMS record, old EKG, old radiological studies, urgent care reports/EKG's, [facility] records)? Report findings @ -No old charts were reviewed Differential Diagnosis (chest pain, altered mental status, abdominal pain women, abdominal pain men, vaginal bleeding, weakness, fever, dyspnea, syncope, headache, dizziness, GI bleed, back pain, seizure, CVA, palpatations, mental health, musculoskeletal)? @ -Cellulitis, reactive lymphadenopathy, abscess, this list is not all inclusive EKG interpreted by me (3pts min.). @ -none X-rays interpreted by me (1pt min.). @ -None done CT interpreted by me (1pt min.). @ -None done U/S interpreted by me (1pt. min.). @ -None done What testing was considered but not performed or refused? (CT, X-rays, U/S, labs)? Why? @ -None What meds were considered but not given or refused? Why? @ -None Did you discuss the management of the patient with other professionals (professionals i.e. Dr., PA, COAL CONVEYOR OPERATOR, lab, RT, psych nurse, social media marketing manager, carton counter feeder, teacher, ecological technical officer, director of casework)? Give summary @ -No Was smoking cessation discussed for >3mins.? @ -No Was critical care preformed (if so, how long)? @ -No Were there social determinants of health that impacted care today? How? (Homelessness, low income, unemployed, alcoholism, drug addiction, transportation, low edu. Level, literacy, decrease access to med. care, [facility], rehab)? @ -No Was there de-escalation of care discussed even if they declined (Discuss DNR or withdrawal of care, Hospice)? DNR status @ -No What co-morbidities impacted this encounter? (DM, HTN, Smoking, COPD, CAD, Cancer, CVA, ARF, Chemo, Hep., AIDS, mental health diagnosis, sleep apnea, morbid obesity)? @ -None Was patient admitted / discharged? Hospital course, mention meds given and route, prescriptions, significant lab abnormalities, going to OR and other pertinent info. @ -Discharged. Patient presented to the emergency department for evaluation of bug bite to the left side of the neck. Patient was provided Rocephin and Benadryl while in the emergency department. Patient's outpatient antibiotics were also increased to 4 times daily for cellulitis treatment. Patient will be discharged home. She is understanding agreeable plan. Patient stable at time of discharge. Case discussed with Dr. Castro. Undiagnosed new problem with uncertain prognosis? @ -No Drug Therapy requiring intensive monitoring for toxicity (Heparin, Nitro, Insulin, Cardizem)? @ -No Were any procedures done? @ -No Diagnosis/symptom? @ -Cellulitis Acute, or Chronic, or Acute on Chronic? @ -Acute Uncomplicated (without systemic symptoms) or Complicated (systemic symptoms)? @ -Uncomplicated Side effects of treatment? @ -No Exacerbation, Progression, or Severe Exacerbation? @ -No Poses a threat to life or bodily function? How? (Chest pain, [place], [place], pneumonia, PE, COPD, DKA, ARF, appy, cholecystitis, CVA, Diverticulitis, Homicidal, Suicidal, threat to staff... and all critical care pts) @ -No Disposition Clinical Impression: Bug bite, Lymphadenopathy Disposition: HOME SELF-CARE Condition: Stable Instructions (If sedation given, give patient instructions): Insect Bite or Sting (ED) Additional Instructions: Please peanut picker medication and take to completion. Follow up with your primary care provider. Return to the emergency department for new or worsening symptoms. Prescriptions: Cephalexin [Keflex] 500 mg PO Q6HR #40 cap Triamcinolone 0.1% Ointment [Kenalog 0.1% Ointment] 1 applic TOPICAL BID #15 gm Is patient prescribed a controlled substance at d/c from ED?: No Referrals: None,Stated [Primary Care Provider] - 1-2 days
[2024-05-30] MEDS: cefTRIAXone 250 MG VIAL IM STA (01:43)
[2024-05-30] MEDS: DOXYCYCLINE 100 MG CAP PO STA (01:44)
[2024-05-30] MEDS: diphenhydrAMINE 50 MG CAP PO STA (01:44)
[2024-05-30 01:50] VITALS: BP 128/83; PULSE 88; RESP 18; TEMP 98.2
== END 2024-05-30 01:54 | disposition home or self-care (01) ==
LOC: EC 23:50
DX: L03.221 Cellulitis of neck (principal); R59.1 Generalized enlarged lymph nodes; F17.290 Nicotine dependence, other tobacco product, uncomplicated; W57.XXXA Bitten or stung by nonvenomous insect and other nonvenomous arthropods, initial encounter
CPT/HCPCS: 99283; 96372; J0696